=== PATIENT | male | born 1990 | race Caucasian/White ===

== ENCOUNTER 2018-10-02 23:57 | Emergency (ER) | payer BC ==
[2018-10-03 00:01] VITALS: BP 163/103; PULSE 108; RESP 18; TEMP 98.3
--- NOTE | 2018-10-03 00:17 | ED ---
ENT HPI - General Chief complaint: ENT Stated complaint: Sore Throat Time Seen by Provider: 10/03/18 00:16 Source: patient Mode of arrival: ambulatory Limitations: no limitations - History of Present Illness Initial comments: Gurwinder is a pleasant 27-year-old male presents the emergency department today for evaluation of 2 days of sore throat. Patient presented yesterday noticed that his throat was becoming sore and it was worse with swallowing. Today his throat hurt throughout the day which prevented him from eating solid foods. He asked his girlfriend with his throat and noticed his tonsils seemed to be enlarged and red with a lot of purulent discharge and she encouraged him to the ER for evaluation. Patient denies any history of recurrent strep throat. Hasn' t been on antibiotics recently. He denies fevers, chills nausea or vomiting. - Related Data Previous Rx's Medication Instructions Recorded RX: Amoxicillin 500 mg PO BID 10 Days #20 capsule 10/03/18 Allergies Allergy/AdvReac Type Severity Reaction Status Date / Time No Known Allergies Allergy Verified 10/03/18 00:01 Review of Systems ROS Statement: Those systems with pertinent positive or pertinent negative responses have been documented in the HPI. ROS Other: All systems not noted in ROS Statement are negative. Past Medical History Past Medical History: No Reported History History of Any Multi-Drug Resistant Organisms: None Reported Past Surgical History: Orthopedic Surgery Past Psychological History: No Psychological Hx Reported Smoking Status: Current every day smoker Past Alcohol Use History: None Reported Past Drug Use History: None Reported General Exam - General Exam Comments Initial Comments: Physical Exam GENERAL: Patient is well-developed and well-nourished. Patient is nontoxic and well- hydrated and is in no distress. HENT: Normocephalic, Atraumatic. Tonsillar hypertrophy with the MOD and exudates bilaterally Tender Anterior cervical lymphadenopathy EYES: PERRL, EOMI PULMONARY: Unlabored respirations. No audible rales rhonchi or wheezing was noted. CARDIOVASCULAR: There is a regular rate and rhythm without any murmurs gallops or rubs. ABDOMEN: Soft and nontender with normal bowel sounds. SKIN: Skin is clear with no lesions or rashes and otherwise unremarkable. : Deferred NEUROLOGIC: Patient is alert and oriented x3. Moving all extremities spontaneously MUSCULOSKELETAL: Normal extremities with adequate strength and full range of motion. No lower extremity swelling or edema. No calf tenderness. PSYCHIATRIC: Normal psychiatric evaluation. Limitations: no limitations Limitations: no limitations Course Vital Signs 10/02/18 23:59 Temperature 98.3 F Pulse Rate 108 H Respiratory 18 Rate Blood Pressure 163/103 O2 Sat by Pulse 100 Oximetry Medical Decision Making - Medical Decision Making Patient was seen and evaluated history was obtained from patient and girlfriend at bedside next and physical exam concerning for strep pharyngitis, throat was swabbed Will treat with steroids and initiate treatment with amoxicillin Discussed with patient possibility of mononucleosis, advised patient that if he develops a rash within 2 days of starting antibiotics to discontinue antibiotics as he likely has mono. Follow up with ENT for her tonsillar hypertrophy was advised to return parameters were discussed all questions pertaining care were answered patient was discharged home in stable condition. Disposition Clinical Impression: Pharyngitis Disposition: HOME SELF-CARE Instructions: Mononucleosis (ED), Pharyngitis (ED) Prescriptions: RX: Amoxicillin 500 mg PO BID 10 Days #20 capsule Is patient prescribed a controlled substance at d/c from ED?: No Referrals: None,Stated [Primary Care Provider] - 1-2 days [facility] [NON-STAFF] - 1-2 days Patrick Levin DO [Doctor of Osteopathic Medicine] - 1-2 days
[2018-10-03] MEDS ORDERED: DEXAMETHASONE SOD PHOSPHATE 10 MG/ML 1 ML VIAL IM STA (00:25)
[2018-10-03] MEDS ORDERED: AMOXICILLIN 500 MG CAP PO STA (00:25)
== END 2018-10-03 00:45 | disposition home or self-care (01) ==
LOC: EC 23:57
DX: J02.9 Acute pharyngitis, unspecified (principal); J35.1 Hypertrophy of tonsils; F17.200 Nicotine dependence, unspecified, uncomplicated
CPT/HCPCS: 87430; 99283; 96372; J1100

== ENCOUNTER 2018-11-20 07:38 | Emergency (ER) | payer BC, OTHER ==
[2018-11-20 07:43] VITALS: BP 153/93; PULSE 83; RESP 18; TEMP 98
--- NOTE | 2018-11-20 07:52 | ED ---
URI HPI - General Chief Complaint: Upper Respiratory Infection Stated Complaint: Poss bronchitits Time Seen by Provider: 11/20/18 07:46 Source: patient, RN notes reviewed Mode of arrival: ambulatory Limitations: no limitations - History of Present Illness Initial Comments: 27-year-old male presents emergency Department chief complaint of cough congestion for 1 week. Patient states this again worse with no improvement other than when he uses some [id number]-mvicarm cough and cold medications. Patient reports fever last night no fever currently. Patient states he is a daily smoker no history of asthma or COPD. Patient states that his significant other was diagnosed with acute bronchitis. Patient states he hasn't moderate amount of nasal congestion and sinus pressure. - Related Data Home Medications Medication Instructions Recorded Confirmed Ibuprofen [Motrin Ib] 800 mg PO Q6H 11/20/18 11/20/18 Previous Rx's Medication Instructions Recorded Azithromycin [Zithromax Z-pack] 0 mg PO DIRECTED #1 pack 11/20/18 predniSONE 50 mg PO DAILY #5 tab 11/20/18 Allergies Allergy/AdvReac Type Severity Reaction Status Date / Time No Known Allergies Allergy Verified 11/20/18 08:01 Review of Systems ROS Statement: Those systems with pertinent positive or pertinent negative responses have been documented in the HPI. ROS Other: All systems not noted in ROS Statement are negative. Past Medical History Past Medical History: No Reported History History of Any Multi-Drug Resistant Organisms: None Reported Past Surgical History: Orthopedic Surgery Past Psychological History: No Psychological Hx Reported Smoking Status: Current every day smoker Past Alcohol Use History: None Reported Past Drug Use History: None Reported General Exam Limitations: no limitations General appearance: alert, in no apparent distress Head exam: Present: atraumatic, normocephalic, normal inspection Eye exam: Present: normal appearance, PERRL, EOMI. Absent: scleral icterus, conjunctival injection, periorbital swelling ENT exam: Present: mucous membranes moist. Absent: normal exam, normal oropharynx (PND) Neck exam: Present: normal inspection, full ROM. Absent: tenderness, meningismus, lymphadenopathy Respiratory exam: Present: normal lung sounds bilaterally. Absent: respiratory distress, wheezes, rales, rhonchi, stridor Cardiovascular Exam: Present: regular rate, normal rhythm, normal heart sounds. Absent: systolic murmur, diastolic murmur, rubs, gallop, clicks GI/Abdominal exam: Present: soft, normal bowel sounds. Absent: distended, tenderness, guarding, rebound, rigid Course Vital Signs 11/20/18 07:40 Temperature 98 F Pulse Rate 83 Respiratory 18 Rate Blood Pressure 153/93 O2 Sat by Pulse 98 Oximetry Medical Decision Making - Medical Decision Making 27-year-old male presented for cough congestion. Patient's chest x-ray shows no acute abnormality. Patient has acute bronchitis and mild sinusitis will be treated with steroids, antibiotics return parameters were discussed. Smoking sensation greater than 3 minutes were discussed. Disposition Clinical Impression: Bronchitis, Upper respiratory infection Disposition: HOME SELF-CARE Condition: Stable Instructions (If sedation given, give patient instructions): Upper Respiratory Infection (ED) Additional Instructions: Please return to the Emergency Department if symptoms worsen or any other concerns. Prescriptions: Azithromycin [Zithromax Z-pack] 0 mg PO DIRECTED #1 pack predniSONE 50 mg PO DAILY #5 tab Is patient prescribed a controlled substance at d/c from ED?: No Referrals: None,Stated [Primary Care Provider] - 1-2 days Time of Disposition: 08:10
--- NOTE | 2018-11-20 08:01 | XR ---
EXAMINATION TYPE: XR chest 2V DATE OF EXAM: 11/20/2018 COMPARISON: 07/04/1997 HISTORY: Cough/pain TECHNIQUE: Frontal and lateral views of the chest are obtained. FINDINGS: There is no focal air space opacity, pleural effusion, or pneumothorax seen. The cardiac silhouette size is within normal limits. The osseous structures are intact. IMPRESSION: No acute cardiopulmonary process.
== END 2018-11-20 08:15 | disposition home or self-care (01) ==
LOC: EC 07:38
DX: J40 Bronchitis, not specified as acute or chronic (principal); J06.9 Acute upper respiratory infection, unspecified; F17.200 Nicotine dependence, unspecified, uncomplicated; Z79.1 Long term (current) use of non-steroidal anti-inflammatories (NSAID)
CPT/HCPCS: 71046; 99283

== ENCOUNTER 2021-04-06 18:33 | Emergency (ER) | payer OTHER ==
[2021-04-06 19:02] VITALS: BP 94/60; PULSE 74; RESP 18; TEMP 98.2
[2021-04-06] MEDS ORDERED: methylPREDNISolone SOD SUCCI 125 MG/2 ML VIAL IM ONE (20:17)
[2021-04-06] MEDS ORDERED: MORPHINE SULFATE 4 MG/ML SYRINGE IM STA (20:17)
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
--- NOTE | 2021-04-06 21:08 | XR ---
EXAMINATION TYPE: XR lumbar spine 2 or 3V DATE OF EXAM: 04/06/2021 COMPARISON: NONE HISTORY: Back pain TECHNIQUE: 3 views FINDINGS: Lumbar vertebra have fairly normal spacing and alignment. Posterior elements are intact. Th ere is no compression fracture. Sacroiliac joints are intact. IMPRESSION: Negative lumbar spine exam.
== END 2021-04-06 21:36 | disposition home or self-care (01) ==
LOC: EC 18:33
DX: M54.30 Sciatica, unspecified side (principal); F17.200 Nicotine dependence, unspecified, uncomplicated
CPT/HCPCS: 72100; 99283; 96372 ×2; J2270; J2930

== ENCOUNTER 2021-08-20 12:31 | Emergency (ER) | payer OTHER ==
[2021-08-20] MEDS ORDERED: methylPREDNISolone SOD SUCCI 125 MG/2 ML VIAL IM ONE (13:32)
[2021-08-20] MEDS ORDERED: Acetaminophen-Codeine 300-30mg TAB PO STA (13:32)
--- NOTE | 2021-08-20 14:26 | XR ---
EXAMINATION TYPE: XR lumbar spine 2 or 3V DATE OF EXAM: 08/20/2021 CLINICAL HISTORY: pain TECHNIQUE: Three views of the lumbar spine are submitted. COMPARISON: None. FINDINGS: There are 5 lumbar type vertebral bodies identified. The lumbar spine shows satisfactory alignment w ithout evidence of acute fracture or dislocation. Vertebral body heights are within normal limits. Disc spaces are within normal limits. The overlying soft tissue appears unremarkable. IMPRESSION: No acute fracture or dislocation is seen in the lumbar spine. ICD 10 NO FRACTURE, INITIAL EVALUATION
--- NOTE | 2021-08-20 15:10 | ED ---
General Adult HPI - General Chief complaint: Neck Pain/Injury Stated complaint: Back pain Time Seen by Provider: 08/20/21 13:08 Source: patient, RN notes reviewed Mode of arrival: ambulatory Limitations: no limitations - History of Present Illness Initial comments: Patient is a 30-year-old male that complaining of right lower back pain with radiation down the right leg. Patient denied any injury trauma. Patient was otherwise well-appearing. He notes that he has some numbness and tingling on his right leg but no saddle anesthesia or bladder or bowel incontinence/retention. Patient was otherwise well-appearing. He denied chest pain first breath headache nausea vomiting diarrhea constipation fever fatigue chills. - Related Data Home Medications Medication Instructions Recorded Confirmed Ibuprofen [Motrin Ib] 800 mg PO Q6H 11/20/18 11/20/18 Previous Rx's Medication Instructions Recorded Azithromycin [Zithromax Z-pack (6 0 mg PO DIRECTED #1 pack 11/20/18 tabs)] predniSONE 50 mg PO DAILY #5 tab 11/20/18 Ibuprofen [Motrin] 800 mg PO Q6HR #30 tab 04/06/21 predniSONE 50 mg PO DAILY #5 tab 08/20/21 Allergies Allergy/AdvReac Type Severity Reaction Status Date / Time No Known Allergies Allergy Verified 08/20/21 12:39 Review of Systems ROS Statement: Those systems with pertinent positive or pertinent negative responses have been documented in the HPI. ROS Other: All systems not noted in ROS Statement are negative. Past Medical History Past Medical History: No Reported History History of Any Multi-Drug Resistant Organisms: None Reported Past Surgical History: Orthopedic Surgery Past Psychological History: No Psychological Hx Reported Smoking Status: Current every day smoker Past Alcohol Use History: None Reported Past Drug Use History: Marijuana General Exam Limitations: no limitations General appearance: alert, in no apparent distress Head exam: Present: atraumatic, normocephalic, normal inspection Eye exam: Present: normal appearance, PERRL, EOMI. Absent: scleral icterus, conjunctival injection, periorbital swelling ENT exam: Present: normal exam, mucous membranes moist Neck exam: Present: normal inspection Respiratory exam: Present: normal lung sounds bilaterally. Absent: respiratory distress, wheezes, rales, rhonchi, stridor Cardiovascular Exam: Present: regular rate, normal rhythm, normal heart sounds. Absent: systolic murmur, diastolic murmur, rubs, gallop, clicks GI/Abdominal exam: Present: soft, normal bowel sounds. Absent: distended, tenderness, guarding, rebound, rigid Extremities exam: Present: normal inspection, full ROM, normal capillary refill. Absent: tenderness, pedal edema, joint swelling, calf tenderness Back exam: Present: normal inspection, tenderness (Right SI) Neurological exam: Present: alert, oriented X3 Psychiatric exam: Present: normal affect, normal mood Skin exam: Present: warm, dry, intact, normal color. Absent: rash Course Vital Signs 08/20/21 12:37 Temperature 98 F Pulse Rate 96 Respiratory 20 Rate Blood Pressure 172/100 O2 Sat by Pulse 99 Oximetry Medical Decision Making - Medical Decision Making 30-year-old male with right lower back pain radiation on the right leg. 125 mg of Solu-Medrol, Tylenol 3, x-ray lumbar spine ordered. X-ray negative for any acute fractures or dislocations. Patient most likely experiencing sciatica with radicular symptoms. There are will be sent to pharmacy. Case discussed with Dr. Leach, patient discharge home. Disposition Clinical Impression: Sciatica, Lumbar radiculopathy Disposition: HOME SELF-CARE Condition: Stable Instructions (If sedation given, give patient instructions): Sciatica (ED), Lumbar Radiculopathy (ED) Additional Instructions: Please return to the Emergency Department if symptoms worsen or any other concerns. Follow-up primary care 1-2 days. Take as prescribed. Is patient prescribed a controlled substance at d/c from ED?: No Referrals: None,Stated [Primary Care Provider] - 1-2 days Time of Disposition: 15:10
[2021-08-20 15:34] VITALS: BP 154/76; PULSE 80; RESP 17; TEMP 97.9
== END 2021-08-20 15:34 | disposition home or self-care (01) ==
LOC: EC 12:31
DX: M54.16 Radiculopathy, lumbar region (principal); M54.41 Lumbago with sciatica, right side; F17.200 Nicotine dependence, unspecified, uncomplicated; F12.90 Cannabis use, unspecified, uncomplicated
CPT/HCPCS: 99283; 96372; 72100; J2930

== ENCOUNTER → 2022-01-11 | Outpatient (CLI) | payer OTHER ==
--- NOTE | 2022-01-11 21:52 | MR ---
EXAMINATION TYPE: MR lumbar spine wo con DATE OF EXAM: 01/11/2022 COMPARISON: Lumbar spine x-ray August 20, 2021. HISTORY: Low back pain for 12 years, pain radiates into right buttock TECHNIQUE: Multiplanar, multisequence imaging of the lumbar spine is performed without IV contrast. FINDINGS: Sagittal images of the lumbar spine show vertebral body heights and alignment to appear sat isfactory. There is disc desiccation and T11-T12, L3-L4, and L4-L5 levels. Mild disc space narrowing at L3-L4 and L4-L5 levels The conus medullaris is normal in position and signal ending at T12-L1 dis c space level. The bone marrow signal intensity is within normal limits. Axial images show T12-L1 through L2-L3 level to appear within normal limits. Axial images at L3-L4 level show mild/moderate broad-based disc protrusion effacing the anterior thec al sac. Patent bilateral neural foramina are seen. Axial images at L4-L5 level show large focal right paracentral disc protrusion effacing the anterolat eral thecal sac and lateral recess along with likely central right L5 nerve on axial image 8 measurin g 6 mm AP diameter by 14 mm transversely. Mild facet arthropathy bilaterally. Mild bilateral anterior inferior neural foraminal narrowing is noted. Axial images at L5-S1 level appear within normal limits. Paraspinal muscle bulk is preserved. IMPRESSION: Multilevel degenerative changes with largest disc herniation noted at L4-L5 level likely effacing central right L5 nerve accounting for patient's symptoms.
== END | disposition home or self-care (01) ==
LOC: RADMRIMAIN 19:46
PROVIDERS: ATTEND Orthopaedic Surgery
DX: M47.816 Spondylosis without myelopathy or radiculopathy, lumbar region (principal); M51.26 Other intervertebral disc displacement, lumbar region
CPT/HCPCS: 72148

== ENCOUNTER → 2022-02-03 | Outpatient (CLI) | payer OTHER ==
--- NOTE | 2022-02-03 08:05 | P.CON ---
Consult Note - . Consult date: 02/03/22 Assessment/Plan:: HISTORY OF PRESENT ILLNESS: 31 yr old male as a referral from Dr. Sauer presents today with chronic and severe lower back/sacral pain x 12 years secondary to DDD, L5 disc herniation, R L5 encroachment and facet arthropathy for evaluation. Patient states his pain is 5 out of 10 in intensity, constant, sore in character in the lower right aspects of his lumbar spine with radiation of pain to the back of the right pelvis. Pain is provoked with bending, twisting and lifting. Pain is alleviated with medications, +cannabis use, ice, heat, physical therapy for 5-6 weeks which ended in January 2022, daily home stretching regimen, repositioning and rest. Past Medical History: No Reported History History of Any Multi-Drug Resistant Organisms: None Reported Past Surgical History: Orthopedic Surgery Social History: Daily tobacco smoker, +Cannabis use, No ETOH abuse. Family History: Non contributory All: NKDA Meds: Ibuprofen and Flexeril (Dr Sauer) REVIEW OF ORGAN SYSTEMS: CONSTITUTIONAL: No fevers or chills. No recent weight loss. HEENT: No visual acuity loss, eye pain, difficulties with hearing. No nosebleeds. No difficulty swallowing. RESPIRATORY: Denies any troubles with breathing or dyspnea on exertion. CARDIOVASCULAR: Denies any chest pain, palpitations, or recent heart attacks. GASTROINTESTINAL: Denies fatty food intolerance. Has change in bowel habits and gas bloat. GENITOURINARY: Denies any blood in urine. Has increased urinary frequency. NEUROLOGICAL: + numbness and tingling along the distal extremities. No seizure disorders or headaches. MUSCULOSKELETAL: + back pain SKIN: No skin cancer. No rash. PSYCHIATRIC: Denies current depression or suicidal thoughts. ENDOCRINE: Denies current thyroid disorders. Denies any blood sugar glucose intolerance. HEME/LYMPHATIC: Denies any lumps and bumps around the neck. History of deep venous thrombosis. ALLERGY/IMMUNOLOGY: No immunoglobulin therapy. No immune deficiencies. BREAST: Denies current breast lumps, pain or nipple discharge. Physical Examinations : Constitutional : Cooperative , not in acute distress . HEENT: Neck supple. No Lymphadenopathy. Normal thyroid size . Eyes no ptosis , no icterus, no photophobia . Hearing intact. Normal oropharynx. No Thrush. Respiratory : Chest clear to auscultations bilaterally. No wheezing. No rhonchi. Cardiovascular : Regular rate and rhythm , S1 / S2. No S3 . No S4. Gastrointestinal : Abdomen soft. No tenderness. Bowel sounds x 4. No organomegaly . Genitourinary : Deferred. Neurologic : Cranial nerve II to XII intact. No focal neurological deficits. Psychiatric : alert & oriented x 3. Matching mood & appropriate affect. Judgment & insight intact. Lymphatic No Lymphadenopathy. Musculoskeletal : Cervical Spine Motor strength in the deltoid and biceps: Normal right side. Normal Left side Motor strength biceps and the wrist extensors: Normal right side . Normal left side Motor strength in the triceps muscle: Normal right side. Normal left side Deep tendon reflexes: Normal at the biceps. Normal at Brachioradialis. Normal at triceps Cervical facet loading test: positive bilaterally Spurling test: positive bilaterally Neck distraction test: positive bilaterally Harinder sign: positive bilaterally Lumbar spine Motor strength lower extremities ,thigh and legs 5/5 Right side , 5/5 Left side Deep tendon reflexes : Normal Knee Jerk. Normal Ankle Jerk Vertebral body tenderness over Lumbar facet Loading Test: positive Right / positive Left Range of motion of the lumbar spine Flexion 30 degrees, extension 10 degrees Straight Leg Raise test: Left/ Right po sitive at degree [place] test: positive right / positive left. Severe tenderness over the Sacroiliac joint on the Right / Left sides [place] test: positive on the right Seated flexion test: positive on the right Imaging: MRI without contrast of the lumbar spine from 01/11/22 reviewed. Assessment/ Plan : Right sacroiliitis, Lumbar DDD, Lumbar DH Recommendation of right SI joint injection. May need a series of injections, every 3 months, for optimal pain relief. Risks, benefits of procedure discussed and patient verbalized understanding. Denies aspirin or anti- coagulant use or medical history of diabetes. All questions answered. I have spent greater than 50 minutes on patient care today. Dr Vivar was available by phone for the evaluation of this patient. The time was used to review the medical records including relevant urine studies and Prescription history (MAPs), review of the available imaging, evaluation and examination of the patient, coordination of care with the medical staff and if applicable referring physicians, as well as creation of the medical record PQRS Measure Charge Sheet PQRS Narrative: Smoking Status Current every day smoker Home Medications: Ambulatory Orders predniSONE 50 mg PO DAILY #5 tab 08/20/21
[2022-02-03 08:30] VITALS: BP 183/139; PULSE 73; RESP 18; TEMP 98.1
== END ==
LOC: PNWHC3 07:26
PROVIDERS: ATTEND Specialist
DX: M46.1 Sacroiliitis, not elsewhere classified (principal); M51.36 Other intervertebral disc degeneration, lumbar region; M51.26 Other intervertebral disc displacement, lumbar region; F17.200 Nicotine dependence, unspecified, uncomplicated
CPT/HCPCS: 99211

== ENCOUNTER 2022-02-24 11:03 | Inpatient (IN) | payer OTHER ==
[2022-02-24] MEDS ORDERED: MORPHINE SULFATE 4 MG/ML SYRINGE IM STA (11:15)
[2022-02-24] MEDS ORDERED: NALOXONE 0.4 MG/ML 1 ML VIAL IV PRN (11:37)
[2022-02-24] MEDS ORDERED: ACETAMINOPHEN TAB 325 MG TAB PO PRN (11:37)
[2022-02-24] MEDS ORDERED: IBUPROFEN 400 MG TAB PO PRN (11:37)
--- NOTE | 2022-02-24 11:41 | ED ---
Back Pain HPI - General Chief Complaint: Back Pain/Injury Stated Complaint: back pain Time Seen by Provider: 02/24/22 11:10 Source: patient, RN notes reviewed Limitations: no limitations - History of Present Illness Initial Comments: Patient is a pleasant 31-year-old male presents to the emergency room at the direction of Dr. Raygoza sent with complaints of increase in lower back pain and worsening radiculopathy. He has been following with Dr. Raygoza as an outpatient regressive back pain that has been ongoing for several months unfortunately worsened recently the pain has worsened with an increase in numbness tingling and left leg weakness. He denies any difficulty urinating or having bowel movements or any erectile dysfunction. - Related Data Previous Rx's Medication Instructions Recorded predniSONE 50 mg PO DAILY #5 tab 08/20/21 Allergies Allergy/AdvReac Type Severity Reaction Status Date / Time No Known Allergies Allergy Verified 02/24/22 11:07 Review of Systems ROS Statement: Those systems with pertinent positive or pertinent negative responses have been documented in the HPI. ROS Other: All systems not noted in ROS Statement are negative. Past Medical History Past Medical History: No Reported History History of Any Multi-Drug Resistant Organisms: None Reported Past Surgical History: No Surgical Hx Reported, Orthopedic Surgery Past Anesthesia/Blood Transfusion Reactions: No Reported Reaction Past Psychological History: No Psychological Hx Reported Smoking Status: Vaper Past Alcohol Use History: None Reported Past Drug Use History: Marijuana General Exam Limitations: no limitations General appearance: alert, in no apparent distress Head exam: Present: atraumatic, normocephalic, normal inspection Eye exam: Present: normal appearance, PERRL, EOMI. Absent: scleral icterus, conjunctival injection, periorbital swelling ENT exam: Present: normal exam, mucous membranes moist Neck exam: Present: normal inspection. Absent: tenderness, meningismus, lymphadenopathy Respiratory exam: Present: normal lung sounds bilaterally. Absent: respiratory distress, wheezes, rales, rhonchi, stridor Cardiovascular Exam: Present: regular rate, normal rhythm, normal heart sounds. Absent: systolic murmur, diastolic murmur, rubs, gallop, clicks GI/Abdominal exam: Present: soft, normal bowel sounds. Absent: distended, tenderness, guarding, rebound, rigid Extremities exam: Absent: tenderness, pedal edema, joint swelling Left Neurovascular tendon exam: Present: no vascular compromise Gait: observed and limited by pain Back exam: Present: tenderness, muscle spasm Neurological exam: Present: alert, oriented X3, CN II-XII intact, other (Bilateral lower extremities mild weakness L>R) Psychiatric exam: Present: normal affect, normal mood Skin exam: Present: warm, dry, intact, normal color. Absent: rash Course Vital Signs 02/24/22 11:05 Temperature 98.4 F Pulse Rate 103 H Respiratory 20 Rate Blood Pressure 159/119 O2 Sat by Pulse 100 Oximetry Medical Decision Making - Medical Decision Making Dr. Sauer called regarding the patient. Patient has had an outpatient MRI of the lumbar spine showing an L4-L5 herniation with increase in lower extremity symptoms. Dr. Sauer plans for surgery tomorrow and would like patient admitted to his service for pain management overnight with sound physicians to follow for medical management. Dr. Lyndsay Ambrocio notified regarding medical management. Patient's pain much improved with morphine without side effects. - Lab Data Result diagrams: 02/24/22 11:35 02/24/22 11:35 Lab Results 02/24/22 02/24/22 02/24/22 Range/Units 11:35 11:35 11:36 WBC 10.2 (3.8-10.6) k/uL RBC 5.71 (4.30-5.90) m/uL Hgb 17.6 H (13.0-17.5) gm/dL Hct 51.9 (39.0-53.0) % MCV 91.0 (80.0-100.0) fL MCH 30.8 (25.0-35.0) pg MCHC 33.8 (31.0-37.0) g/dL RDW 12.9 (11.5-15.5) % Plt Count 305 (150-450) k/uL MPV 7.0 Neutrophils % 70 % Lymphocytes % 21 % Monocytes % 4 % Eosinophils % 2 % Basophils % 1 % Neutrophils # 7.1 (1.3-7.7) k/uL Lymphocytes # 2.1 (1.0-4.8) k/uL Monocytes # 0.4 (0-1.0) k/uL Eosinophils # 0.2 (0-0.7) k/uL Basophils # 0.1 (0-0.2) k/uL PT 10.6 (9.0-12.0) sec INR 1.0 (<1.2) APTT 25.2 (22.0-30.0) sec Sodium 141 (137-145) mmol/L Potassium 4.0 (3.5-5.1) mmol/L Chloride 104 (98-107) mmol/L Carbon Dioxide 28 (22-30) mmol/L Anion Gap 9 mmol/L BUN 12 (9-20) mg/dL Creatinine 0.98 (0.66-1.25) mg/dL Est GFR (CKD-EPI)AfAm >90 (>60 ml/min/1.73 sqM) Est GFR (CKD-EPI)NonAf >90 (>60 ml/min/1.73 sqM) Glucose 95 (74-99) mg/dL Calcium 9.4 (8.4-10.2) mg/dL Disposition Clinical Impression: Lumbar disc herniation with myelopathy Disposition: ADMITTED IP TO THIS [facility] Instructions (If sedation given, give patient instructions): Acute Low Back Pain (ED) Is patient prescribed a controlled substance at d/c from ED?: No Referrals: None,Stated [Primary Care Provider] - 1-2 days Time of Disposition: 13:16
[2022-02-24 12:08] LABS: Basophils # (A) 0.1 k/uL (0-0.2); Basophils % (A) 1 %; Eosinophils # (A) 0.2 k/uL (0-0.7); Eosinophils % (A) 2 %; HCT 51.9 % (39.0-53.0); HGB 17.6 gm/dL (13.0-17.5); Lymphocytes # (A) 2.1 k/uL (1.0-4.8); Lymphocytes % (A) 21 %; MCH 30.8 pg (25.0-35.0); MCHC 33.8 g/dL (31.0-37.0); Monocytes # (A) 0.4 k/uL (0-1.0); Monocytes % (A) 4 %; Neutrophils # (A) 7.1 k/uL (1.3-7.7); Neutrophils % (A) 70 %; Platelet Count 305 k/uL (150-450); RBC 5.71 m/uL (4.30-5.90); RDW 12.9 % (11.5-15.5); WBC 10.2 k/uL (3.8-10.6)
[2022-02-24 12:14] LABS: Partial Thromboplastin Time 25.2 sec (22.0-30.0); Prothrombin Time 10.6 sec (9.0-12.0)
[2022-02-24 12:22] LABS: African American GFR (CKD) >90 (>60 ml/min/1.73 sqM); Anion Gap 9 mmol/L; Blood Urea Nitrogen 12 mg/dL (9-20); Calcium 9.4 mg/dL (8.4-10.2); Carbon Dioxide 28 mmol/L (22-30); Chloride 104 mmol/L (98-107); Glucose 95 mg/dL (74-99); Non-African American GFR(CKD) >90 (>60 ml/min/1.73 sqM); Sodium 141 mmol/L (137-145)
[2022-02-24] MEDS ORDERED: CYCLOBENZAPRINE 10 MG TAB PO PRN (13:33)
--- NOTE | 2022-02-24 14:27 | P.HPOR ---
History of Present Illness H&P Date: 02/24/22 Chief Complaint: Low back, Leg pain 31 yo male presented to ED with c/o of severe low back and leg pain. Pt is known to me and was seen last week in the office with MRI results showing a massive L4-5 HNP. He has had progressive radicular symptoms and is having weakness in his legs to the point where it is becoming difficult to walk due to the pain and sx. We had planned on surgical intervention. His pain became acutely worse however and so he called office and we advised him to the ED for eval and treatment with likely admission for surgical intervention due to the progressive nature of his sx and severity of his disc herniation. He was evaluated. Continues to have severe LE radiculopathy, severe tensioning signs and pain with motion. Difficulty with ambulation due to the pain and weakness in his legs. He has tried OTC meds, RX medications as well as PT and HEP w/o relief. Injections are unlikely to help this massive HNP and we discussed at length surgical intervention in the office. He denies any bowel or bladder issues. States no retention a this time. He states no genital numbness/tingling at this time but does get occasional pain into his groin and testes which seems to radiate from his back. Denies f/c/sob/cp. Trauma or injury No Work-Related No Pain description sharp. Location posterior Activity Modification yes , unable to stand or ambulate for extended periods of time. Hand Dominance right DOI: None. DOS: None. TREATMENTS COMPLETED: 6 weeks of PT completed? Date of last completed: 01/2022 Yes How many visits: 6-8 Did it help? No, significantly exacerbated his symptoms. Physician directed home exercise completed? yes , daily without any improvements. Can no longer complete as it severely impacts his ability to complete daily tasks. Medications yes, Medrol Dosepak, Motrin 800mg, Flexeril 10mg all without relief of his symptoms. Alternative interventions Chiropractic: Yes, without any improvements. Massage therapy: No Brace: No Injections NO, we previously ordered but was denied by his insurance company. RFA: No Review of Systems 14 points review of systems completed and as stated in HPI, all other systems reviewed are negative. Constitutional: Reports as per HPI Past Medical History Past Medical History: No Reported History History of Any Multi-Drug Resistant Organisms: None Reported Past Surgical History: No Surgical Hx Reported, Orthopedic Surgery Past Anesthesia/Blood Transfusion Reactions: No Reported Reaction Past Psychological History: No Psychological Hx Reported Smoking Status: Vaper Past Alcohol Use History: None Reported Past Drug Use History: Marijuana Medications and Allergies Home Medications Medication Instructions Recorded Confirmed Type Cyclobenzaprine [Flexeril] 10 mg PO BID 02/24/22 02/24/22 History Gabapentin [Neurontin] 300 mg PO TID 02/24/22 02/24/22 History HYDROcodone/APAP 10-325MG [[place] 1 tab PO Q4HR PRN 02/24/22 02/24/22 History 10-325] Ibuprofen [Motrin] 800 mg PO Q6H PRN 02/24/22 02/24/22 History Allergies Allergy/AdvReac Type Severity Reaction Status Date / Time No Known Allergies Allergy Verified 02/24/22 13:25 Physical Examination Osteopathic Statement: *. No significant issues noted on an osteopathic st ructural exam other than those noted in the History and Physical/Consult. PHYSICAL EXAMINATION: General: Awake, alert, appropriate for age, in no acute distress. HEENT: No unusual neck masses around region of lateral neck triangle, thyroid, supraclavicular groove Extremities: Skin warm and dry without acute lesions, coloration, temperature, skin intact, no tenderness or erythema Integument: Hairy patches: Absent Dorsal skin dimples: Absent Cafe au lait spots: Absent Surgical incisions: No Palpation: Please see Pain drawing on Intake sheet for further detail. Midline spinal tenderness: Yes E6 Paralumbar tenderness: Yes E6 Parathoracic tenderness: No E6 Buttocks tenderness: No E6 Special findings: TTP over the right SI joint POSTURAL and MUSCULO-SKELETAL EVALUATION: Coronal Balance: NEUTRAL Recumbent testing: Patient is able to lay flat on back Sagittal Balance: NEUTRAL Shoulder Profile: LEVEL Pelvic Girdle: LEVEL Neck ROM: UNRESTRICTED Lumbar ROM: RESTRICTED WITH PAIN Shoulder ROM: Symmetrical Hip ROM: Symmetrical Knee ROM: Symmetrical Hands: Normal appearance, symmetrical Feet: Normal appearance, Symmetrical VASCULAR STATUS : LEFT RIGHT Wrist Pulses INTACT INTACT Pedal Pulses (Dors. pedis & post.tibialis) INTACT INTACT Color NORMAL NORMAL Edema Absent Absent NEUROLOGIC EXAMINATION: Mental Status:Awake and alert, fully oriented, with normal attention, concentration and memory, and fluent, appropriate speech. Cranial Nerves: I: Olfactory not tested. II: Visual acuity normal, no visual field deficit noted with confrontation. III,IV: Normal pupillary reflexes & intact extraocular movements without nystagmus. V,: Intact symmetrical facial sensation. VII: Intact symmetrical facial motor movement VIII: Hearing intact. IX,X: Intact gag, swallow, & normal voice. XI: Sternocleidomastoid, trapezius function intact. XII: Tongue midline with normal movements. L'hermitte's Sign: Negative / absent Spurling'Sign: Absent bilaterally. Cubital percussion test: Absent bilaterally. Naqvi-Tinel sign - Carpal region: Absent bilaterally. Straight Leg Raising: Present bilaterally. Crossed straight leg raise: negative O8 MOTOR EXAM (0-5/5, N/T) STRENGTH RIGHT LEFT Shoulder Abd (not part of the KAYLIN score) 5 5 Elbow Flexors 5 5 Elbow Extensor 5 5 Wrist Dorsiflexors 5 5 Finger Abductor 5 5 Director Of Sales 5 5 Hip Flexor (Not part of KAYLIN Motor score) 4 4- Knee Flexor 4 4- Knee Extensor 4 4- Ankle dorsiflexor 4 4- Ankle plantarflexion 4 4- Extensor hallucis 4 4- REFLEXES(0-4/2, NT) RIGHT LEFT Upper Extremities 2 2 Lower Extremities 2 2 Pathological Reflexes RIGHT LEFT Naqvi's Absent Absent Clonus Absent Absent Babinski Absent Absent # Indicates mechanical impairment Muscle appearance: Symmetrical, without signs of atrophy or dystrophy. Sensory system (0-4, N/T) Test type RU JARETH RL LL Joint-Position 2 2 2 2 Vibration 2 2 2 2 Pain & LT sense 2 2 2 2 Dermatomal Deficit: None None L4-S1 L4-S1 Gait and Functional Evaluation: Ambulatory aids: Independent Romberg's test: Intact bilaterally Toe heel walk / heel-toe walk intact while maintaining satisfactory balance? no Squatting/straightening w/o assistance to a min of 60 degree knee flexion? no Single leg stance: not intact bilaterally Trendelenburg sign negative bilaterally Hand and finger dexterity intact bilaterally? yes Disdiadochokinesis examination negative bilaterally? yes Results RADIOGRAPHIC STUDIES: XRay taken on 11/02/21 of Lumbar Spine: Lumbar spine is reviewed. There are no fractures or dislocation noted. No listhesis. Some minor ddd and facet arthropathy noted. AP pelvis shows no fracture or dislocation MRI without contrast from 01/15/2022 of the lumbar spine: Extremely large HNP at L4-5 causing severe stenosis at L4-5 with b/l foraminal stenosis as well due to thecal sac encrochment. Alignment maintained. No fracures. No lesions. - Labs Labs: Abnormal Lab Results - Last 24 Hours (Table) 02/24/22 Range/Units 11:35 Hgb 17.6 H (13.0-17.5) gm/dL H & H 02/24/22 Range/Units 11:35 Hgb 17.6 H (13.0-17.5) gm/dL Hct 51.9 (39.0-53.0) % Coagulation 02/24/22 Range/Units 11:36 INR 1.0 (<1.2) Result Diagrams: 02/24/22 11:35 02/24/22 11:35 Assessment and Plan Assessment: 1. Massive L4-5 HNP with severe LBP and radiculopathy 2. LE weakness 3. Debility secondary to #1 Plan: -Appreciate consulting services and team management -Admit to hospital for pain control and work up for surgical intervention -Start Gabapentin, Flexeril, pain control and home meds -Hold anticoag -Reg diet. NPO @ [place] -Spine Surgery Risk Review Mr. Motta is presenting for evaluation of sharp low back pain. It was my pleasure to have seen and examined Mr. Motta. In our visit today we have had a chance to go over subjective complaints, physical examination findings and treatments including the natural course history without intervention and various interventional options. The patients imaging demonstrates Massive L4-5 HNP with severe stenosis centrally and b/l foraminally with disc height loss due to this as well. No fracture. No lesions. On physical exam, Mr. Motta demonstrates bilateral lower extremity radiculopathy with weakness and severely resictricted ROM with regards to the lumbar spine. Tensioning signs with positive SLR on L and pos contralateral SLR on Rt. Patient unable to complete most testing due to the severity of his symptoms. I have explained to the patient that as their condition progresses it will cause further neurological deficits and eventual paralysis. Based on the patients imaging, physical exam, and the rapid progression and disabling nature of their symptoms, at this time I recommend surgery in the form or a: L4-L5 Microdiscectomy. I discussed the risk and benefits of this procedure at length with Mr. Motta. The patient agreed to considered pursuing the procedure abovementioned. Prior to surgery, she should follow up with her PCP (Cardio, ID, IM etc) for clearance. Questions were invited and answered, and the patient wishes to proceed as outlined below. Currently, I am recommendin. L4-L5 Microdiscectomy 2.Follow up with PCP for surgical clearance 3.Review of surgical risks and benefits as well as an educational packet on the proposed surgical procedure. Risks: All surgical procedures come with inherent risks, including those related to positioning, anesthesia, intraoperative findings, and postoperative complications. It is important to understand that surgery does not come with an y guarantee of a successful outcome as complications and adverse events are always possible. The patient was given a handout in office today discussing the surgical procedure and risks associated with the intervention, both of which were discussed with the patient. These risks include but are not limited to the following: * Experiencing same, different or even worse symptoms in back, neck, arms, or legs compared to before surgery. Requiring further surgery or other forms of treatment presently or at some time in the future at same or other levels of the intended spine surgery. On an extreme but fortunately relatively rare basis severe complication such as blindness, stroke, heart attack, temporary and/or permanent nerve injury, paralysis, coma, or may occur, sometimes without known explanation. Surgical complications may include but are not limited to risk of infection, fluid accumulation in the surgical dissection site, including a seroma or hematoma, that requires additional surgery, wound drainage, bleeding, new numbness or weakness, vision changes/loss, spinal fluid leakage, non-healing and/or infected incision, headaches, difficulty or inability to swallow, hoarseness, hemopneumothorax, pneumothorax, impotence, retrograde ejaculation, vaginal dryness; injury to nerves, spinal cord, blood vessels, lymphatics or other vital organs (i.e., bowel injury, injury to the great vessels); heterotopic bone formation; complications related to the hardware such as screws, rods, cages including misplaced hardware, device failure, instrumentation at the wrong spine level, hardware fracture/breakage, or hardware loosening; vertebral failure of the spinal column above or below the newly placed hardware; retained surgical instrumentations or devices and the need for further surgery. * Medical risks of the planned spine surgery include but are not limited to generalized Infections to the whole body or local areas outside of the surgical site (sepsis), heart attack, bleeding, anaphylaxis, meningitis, seizure, epilepsy, hearing loss, burn zapata, laceration of the head or other areas of the body, bruising, hypersensitivity of the skin, bladder over distension; allergic reaction; shoulder injury related to positioning; fat, blood and air clots to other areas of the body like heart, lungs, brain; failure of internal organs such as lungs, kidneys, liver and excessive bleeding. If blood transfusions are necessary, note that transfusions may cause intolerance reactions such as anaphylaxis or other complex reactions. Despite best efforts, the results of spine surgery might not heal in terms of bone, soft tissues such as skin, fascia, ligaments, and joints. Additionally, in order to achieve best possible results, spine surgery may be carried out beyond the initially planned levels and involve decompression, fusion including insertion of hardware at levels other than the original intended area of surgical interest change some portions of the procedure in order to ensure the best possible outcomes. With spine surgery and spinal fusion, there are different off label uses of instrumentation (devices, implants and hardware) as well as biological substances (bone morphogenic proteins, demineralized bone matrix) as well as using extra bone from allograft sources (i.e. cadaver bone) or autograft (iliac crest bone, ribs, or the spine itself). The patient has been given information about these practices and their inherent risks and benefits. [facility] is an educational center that serves as a training facility for neurosurgical and orthopedic LEAD SOFTWARE DEVELOPMENT ENGINEER and Nursing students. Physician assistants are medically trained surgical providers who function in the outpatient, inpatient, and operating room setting under the direct supervision of the attending surgeon. [facility] has multiple operating rooms with single and overlapping rooms running daily. They currently function under the required guidelines as produced by the Senate Finance Committee with regards to the overlapping rooms and will continue to comply with changes to this policy as they occur. The requirements include and are complied with as follows: (1) the critical portions of the overlapping rooms will not occur at the same time, (2) the attending physician will be physically present during the critical portions of the procedure and immediately available during the entire case, and (3) a back-up attending is designated should the primary attending not be immediately available. The patient has had a chance to review all the listed information, has been given print outs detailing this information, and has had all his/her questions answered to their satisfaction. It was my pleasure to have seen and examined Mr. Motta. In our visit today we have had a chance to go over my understanding of our patient's current condition, the natural course history without intervention and various interventional options. Questions were invited and answered, and the patient wishes to proceed as outlined above. I have seen and examined the patient for 25 minutes and we have spent more than 50% of the time in repeat and detailed counseling about the patient's condition, its natural course history with out and as much as can be predicted with surgery and re-review of various surgical treatment options. In conclusion, Mr. Motta requested we proceed with the above suggested surgery and are willing to accept risks and limitations of the suggested surgery as nature of the disease process and our best attempts at treatment for the condition. Thank you again for allowing us to be part of your patient's care. Please don't hesitate to contact me if you have any further questions. Signed and authenticated by: [facility] [place] [address] [id number]
[2022-02-24] MEDS ORDERED: bisacodyL 5 MG TABLET.DR PO PRN (15:10)
[2022-02-24] MEDS ORDERED: ONDANSETRON 4 MG/2 ML VIAL IVP PRN (15:10)
--- NOTE | 2022-02-24 15:16 | P.CONS ---
History of Present Illness - Reason for Consult Consult date: 02/24/22 pre-op evaluation Requesting physician: Hima Sauer - Chief Complaint back pain - History of Present Illness Patient is a 31-year-old male with history of chronic back pain, I want use, and recent tobacco use who presented to the ER at the direction of Dr. Sauer for numbness and tingling with worsening back pain. In the ER he underwent an extensive evaluation. On arrival his heart rate was 103 and blood pressure was 159/119. Laboratory analysis was unremarkable. We were asked to consult on the patient for preoperative risk stratification. Patient seen and examined at bedside in the emergency department. He reports that he has been struggling with back pain for the last several months and following up with Dr. Oneill He underwent MRI at the end of December which showed a significant disc fall L4 5. His pain has been worsening over the last week. Over the last 2 days he has noted some numbness down his left thigh which abruptly stops at his left knee. He has also noted some numbness in his genital area. He reports his bowel movements have been normal. He has been straining to start urinating sometimes area but not consistently. It gets worse with walking and placing an axial load on the spine. It is better with bending down to reach for things or squatting. He quit smoking 2 weeks ago. He is not on any chronic medications. Pertinent positives and negatives as discussed in HPI, a complete review of systems was performed and all other systems are negative. Vital signs reviewed General: non toxic, no distress, appears at stated age Derm: warm, dry Head: atraumatic, normocephalic, symmetric Eyes: EOMI, no lid lag, anicteric sclera, pupils equal round reactive to light ENT: Nose and ears atraumatic, no thrush, no pharyngeal erythema Neck: No thyromegaly, no cervical lymphadenopathy, trachea midline, supple Mouth: no lip lesion, mucus membranes moist Cardiovascular: S1S2 reg, no murmur, positive posterior tibial pulse bilateral, no edema, capillary refill less than 2 seconds Lungs: clear to ascultation bilateral, no ronchi, no rales, no wheeze, no accessory muscle use Abdominal: soft, nontender to palpation, no guarding, no appreciable organomegaly, normal bowel sounds Ext: no gross muscle atrophy, no contractures Neuro: CN II-XII grossly intact, numbness left thigh to knee, decreased strength in bilateral lower extremities Psych: Alert, oriented, appropriate affect Assessment/Plan: L4/5 lumbar disc herniation with radiculopathy Intractable back pain that failed outpatient treatment with pain management, PT, and steroids -Discussed with Dr. Sauer plan is for OR tomorrow. Perioperative risk stratification -- NSQIP: Lower than average risk for post-op outcomes including serious complication (2.5), (0.0), cardiac (0.0) No additional testing needed prior to surgery Patient is currently medically optimized for surgery. Chronic: THC use, Recent tobacco dependency (quit recently) Thank you for allowing us to participate in the care of this pleasant patient. Do not hesitate to contact us with questions. Someone can be reached from the [facility] hospitalist group all hours of the day at [phone] or via [employer]. Past Medical History Additional Past Medical History / Comment(s): chornic back pain due to herniated disc History of Any Multi-Drug Resistant Organisms: None Reported Past Surgical History: Orthopedic Surgery Additional Past Surgical History / Comment(s): right hand fracutre repair Past Anesthesia/Blood Transfusion Reactions: No Reported Reaction Past Psychological History: No Psychological Hx Reported Smoking Status: Vaper Past Alcohol Use History: None Reported Past Drug Use History: Marijuana - Past Family History Mother Additional Family Medical History / Comment(s): no heart disease Medications and Allergies Home Medications Medication Instructions Recorded Confirmed Type Cyclobenzaprine [Flexeril] 10 mg PO BID 02/24/22 02/24/22 History Gabapentin [Neurontin] 300 mg PO TID 02/24/22 02/24/22 History HYDROcodone/APAP 10-325MG [[place] 1 tab PO Q4HR PRN 02/24/22 02/24/22 History 10-325] Ibuprofen [Motrin] 800 mg PO Q6H PRN 02/24/22 02/24/22 History Allergies Allergy/AdvReac Type Severity Reaction Status Date / Time No Known Allergies Allergy Verified 02/24/22 13:25 Physical Exam Osteopathic Statement: *. No significant issues noted on an osteopathic structural exam other than those noted in the History and Physical/Consult. Vitals: Vital Signs Temp Pulse Resp BP Pulse Ox 02/24/22 13:52 68 18 168/115 98 02/24/22 11:05 98.4 F 103 H 20 159/119 100 Intake and Output 02/24/22 02/24/22 02/24/22 06:59 14:59 22:59 Other: Weight 106.594 kg Results CBC & Chem 7: 02/24/22 11:35 02/24/22 11:35 Labs: Abnormal Lab Results - Last 24 Hours (Table) 02/24/22 Range/Units 11:35 Hgb 17.6 H (13.0-17.5) gm/dL
[2022-02-24] MEDS: GABAPENTIN 100 MG CAP PO SCH ×2 (16:16→22:44)
[2022-02-24] MEDS ORDERED: hydrALAZINE HCL 25 MG TAB PO STA (19:37)
[2022-02-24] MEDS: MELATONIN 3 MG TABLET PO PRN ×2 (19:49→22:45)
[2022-02-24] MEDS: MORPHINE SULFATE 4 MG/ML SYRINGE IVP PRN (19:49)
[2022-02-24] MEDS: oxyCODONE-APAP 5-325MG 1 EACH TAB PO PRN (22:45)
[2022-02-25] MEDS: MORPHINE SULFATE 4 MG/ML SYRINGE IVP PRN (00:35)
[2022-02-25] MEDS ORDERED: LABETALOL 200 MG TAB PO STA (02:20)
[2022-02-25] MEDS: oxyCODONE-APAP 5-325MG 1 EACH TAB PO PRN ×2 (03:24→21:01)
[2022-02-25] MEDS ORDERED: ACETAMINOPHEN IV (For NPO) 1,000 MG in EMPTY BAG 1 BAG IVPB ONE (07:11)
--- NOTE | 2022-02-25 08:03 | P.PN ---
Subjective Progress Note Date: 02/25/22 Principal diagnosis: Low back pain, Leg pain Patient seen and examined at bedside this morning. Upon entering the room patient was asleep. He states that he did not sleep well last night with complaints of burning in his lower back. Patient states his pain is currently controlled at this time. He has been NPO since midnight in preparation for surgical procedure to be performed today L4 to L5 microdiscectomy. Questions and concerns regarding surgical procedure have been addressed, patient verbalizes understanding. Discussed elevated blood pressure, patient states that his blood pressure has been this way for awhile and has not been addressed by PCP. Patient is ambulatory within room. He denies any loss of bowel or bladder. Objective - Vital Signs Vital signs: Vital Signs Temp 98.2 F 02/25/22 01:50 Pulse 71 02/25/22 01:50 Resp 16 02/25/22 01:50 BP 180/138 02/25/22 01:50 Pulse Ox 100 02/25/22 01:50 FiO2 Intake & Output 02/24/22 02/25/22 02/25/22 18:59 06:59 18:59 Weight 106.594 kg 106.594 kg Other: # Voids 2 - Exam Physical Examination General: The patient is awake and alert, in no acute distress Skin: Skin is warm and dry with no obvious rashes or lesions. Hairy patches absent, no dorsal skin dimples, no cafe au lait spots, and no surgical incisions. Eye: Pupils are equal, round and reactive to light, extra-ocular movements are intact; there is normal conjunctiva bilaterally. Neck: The neck is supple, there is no tenderness and ROM intact. Cardiovascular: There is a regular rate and rhythm. No murmur, rub or gallop is appreciated. Respiratory: Lungs are clear to auscultation, respirations are non-labored, breath sounds are equal. Gastrointestinal: Soft, non-distended, non-tender abdomen . Back: There is no tenderness to palpation in the midline, paralumbar, parathoracic or buttocks region. There is no obvious deformity . Musculoskeletal: ROM limited secondary to pain and stiffness from surgical procedure. Shoulder abduction 5/5, elbow flexors 5/5, wrist dorsiflexors 5/5. finger abductor 5/5, haulage engine operator 5/5, hip flexor 4/5, knee flexor 4/5, ankle dorsiflexor 4/5, ankle plantarflexion 4/5 and extensor hallucis 4/5. Neurological: CN 2-12 intact. There are no obvious motor or sensory deficits. Movement and coordination equal and intact. Sensory exam to light touch intact C5-T1 and intact from L2-S1. Reflexes 2/4 in bilateral upper and lower extremities. Negative Hoffmans, babinski, and clonus signs. Psychiatric: Cooperative, appropriate mood & affect, normal judgment. - Labs CBC & Chem 7: 02/24/22 11:35 02/24/22 11:35 Labs: Abnormal Lab Results - Last 24 Hours (Table) 02/24/22 Range/Units 11:35 Hgb 17.6 H (13.0-17.5) gm/dL Assessment and Plan Assessment: 1. Massive L4-5 HNP with severe LBP and radiculopathy 2. LE weakness 3. Debility secondary to #1 Plan: Plan: -Appreciate consulting services and team management -Pain management: Gabapentin, Flexeril, IV Tylenol x1, Dilaudid, Percocet -Hold anticoag -Remain NPO -Surgical Intervention: L4-L5 microdiscectomy
[2022-02-25] MEDS: CYCLOBENZAPRINE 10 MG TAB PO SCH ×3 (08:14→21:01)
[2022-02-25] MEDS: GABAPENTIN 300 MG CAP PO SCH ×3 (08:14→21:01)
[2022-02-25] MEDS: LACTATED RINGERS 1,000 ML IV SCH (13:03)
[2022-02-25] MEDS ORDERED: ONDANSETRON 4 MG/2 ML VIAL IVP ONE (13:16)
[2022-02-25] MEDS ORDERED: DEXAMETHASONE SOD PHOSPHATE 4 MG/ML 1 ML VIAL IVP ONE (13:16)
[2022-02-25] MEDS ORDERED: LACTATED RINGERS 1,000 ML IV ONE (13:24)
[2022-02-25] MEDS ORDERED: TRANEXAMIC ACID IN NACL,ISO-OS 1,000 MG in SALINE 1 100ML.BAG IVPB PRN ×2 (14:00)
[2022-02-25] MEDS ORDERED: BUPIVACAIN-EPI 0.25%-1:200,000 30 ML VIAL SQ ONE (14:07)
[2022-02-25] MEDS ORDERED: THROMBIN (BOVINE) 5,000 UNIT VIAL TOPICAL ONE ×2 (14:07)
[2022-02-25] MEDS ORDERED: GELATIN SPONGE,ABSORB (LARGE) 1 EACH SPONGE TOPICAL ONE (14:07)
[2022-02-25] MEDS ORDERED: LIDOCAINE 0.5% (PF) 5 MG/ML (50 ML SDV) SQ ONE (14:08)
--- NOTE | 2022-02-25 15:29 | P.PN ---
Subjective Progress Note Date: 02/25/22 (delayed charting seen at 1035) Patient is a 31-year-old male with history of chronic back pain, I want use, and recent tobacco use who presented to the ER at the direction of Dr. Sauer for numbness and tingling with worsening back pain. In the ER he underwent an extensive evaluation. On arrival his heart rate was 103 and blood pressure was 159/119. Laboratory analysis was unremarkable. Patient seen and examined at bedside. His pain is better than when he came in. He no longer has numbness and tingling but feels a burning cessation in his left hip. He overall is feeling much improved. General: non toxic, no distress, appears at stated age Derm: warm, dry Head: atraumatic, normocephalic, symmetric Eyes: EOMI, no lid lag, anicteric sclera Mouth: no lip lesion, mucus membranes moist Cardiovascular: S1S2 reg, no murmur, positive posterior tibial pulse bilateral, Lungs: CTA bilateral, no rhonchi, no rales , no accessory muscle use Abdominal: soft, nontender to palpation, no guarding, no appreciable organomegaly Ext: no gross muscle atrophy, no edema, no contractures Neuro: CN II-XI grossly intact, no focal neuro deficits Psych: Alert, oriented, appropriate affect Assessment/Plan: L4/5 lumbar disc herniation with radiculopathy Intractable back pain that failed outpatient treatment with pain management, PT, and steroids - plan is OR today - pain control, muscle relaxors - decadron Chronic: THC use, Recent tobacco dependency (quit recently) Thank you for allowing us to participate in the care of this pleasant patient. Do not hesitate to contact us with questions. Someone can be reached from the [facility] hospitalist group all hours of the day at [phone] or via [employer]. Objective - Vital Signs Vital signs: Vital Signs Temp 97.9 F 02/25/22 13:04 Pulse 69 02/25/22 13:04 Resp 18 02/25/22 13:04 BP 155/103 02/25/22 13:04 Pulse Ox 98 02/25/22 13:04 FiO2 Intake & Output 02/24/22 02/25/22 02/25/22 18:59 06:59 18:59 Intake Total 150 Balance 150 Weight 106.594 kg 106.594 kg Intake: IV 150 Other: # Voids 2 - Labs CBC & Chem 7: 02/24/22 11:35 02/24/22 11:35
[2022-02-25] MEDS ORDERED: SENNOSIDES 8.6 MG TAB PO PRN (16:14)
--- NOTE | 2022-02-25 16:48 | P.PN ---
Progress Note - Text Progress Note Date: 02/25/22 Brief post op: Pt s/e in PACU. He is waking up and able to follow commands. He is moving all 4 ext with good strength. He does not answer questions well however as he is still sleepy. VSS at this time. Nsg at bedside. Anesthesia evaluating. He will be transferred back to the floor when he is awake and stable per PACU staff and anesthesia staff.
[2022-02-25] MEDS ORDERED: HYDROmorphone 0.5 MG/0.5 ML SYRINGE IVP ONE ×2 (16:52→17:03)
[2022-02-25] MEDS: HYDROmorphone 0.5 MG/0.5 ML SYRINGE IVP PRN (19:11)
[2022-02-25] MEDS ORDERED: PROPOFOL 10 MG/ML 20 ML VIAL IV ONE (19:13)
[2022-02-25] MEDS ORDERED: NEOSTIGMINE 1 MG/ML 10 ML VIAL ONE (19:13)
[2022-02-25] MEDS ORDERED: ROCURONIUM 10 MG/ML (5 ML VIAL) IV ONE (19:13)
[2022-02-25] MEDS ORDERED: KETAMINE 10 MG/ML 20 ML VIAL ONE (19:13)
[2022-02-25] MEDS ORDERED: GLYCOPYRROLATE 0.2 MG/ML 2 ML VIAL ONE (19:13)
[2022-02-25] MEDS ORDERED: LIDOCAINE 4% LTA KIT (4 ML) TOPICAL ONE (19:13)
[2022-02-25] MEDS ORDERED: TRANEXAMIC ACID IN NACL,ISO-OS 1,000 MG/100 ML BAG ONE (19:13)
[2022-02-25] MEDS ORDERED: HYDROmorphone (PF) 1 MG/ML ONE (19:13)
[2022-02-25] MEDS ORDERED: MIDAZOLAM 2 MG/2 ML VIAL ONE (19:13)
[2022-02-25] MEDS ORDERED: fentaNYL (PF) 50 MCG/ML 2 ML AMP ONE (19:13)
[2022-02-25] MEDS ORDERED: SUCCINYLCHOLINE CHLORIDE 100 MG/5 ML SYR IV ONE (19:13)
[2022-02-25] MEDS ORDERED: LIDOCAINE 2% INJ 20 MG/ML (2 ML VIAL) ONE (19:13)
[2022-02-25] MEDS: HYDROmorphone 1 MG/ML 1 ML SYRINGE IVP PRN (21:45)
[2022-02-26] MEDS: oxyCODONE-APAP 10-325MG 1 EACH TAB PO PRN ×3 (00:27→08:40)
[2022-02-26] MEDS: HYDROmorphone 1 MG/ML 1 ML SYRINGE IVP PRN (02:28)
[2022-02-26] MEDS ORDERED: HYDROmorphone 1 MG/ML 1 ML SYRINGE IVP PRN (04:15)
[2022-02-26 06:21] LABS: Basophils # (A) 0.1 k/uL (0-0.2); Basophils % (A) 0 %; Eosinophils # (A) 0.1 k/uL (0-0.7); Eosinophils % (A) 1 %; HGB 15.5 gm/dL (13.0-17.5); Lymphocytes # (A) 2.1 k/uL (1.0-4.8); Lymphocytes % (A) 13 %; MCH 30.3 pg (25.0-35.0); MCHC 33.1 g/dL (31.0-37.0); MCV 91.5 fL (80.0-100.0); Mean Platelet Volume 6.8; Monocytes % (A) 6 %; Neutrophils # (A) 13.1 k/uL (1.3-7.7); Neutrophils % (A) 79 %; Platelet Count 228 k/uL (150-450); RBC 5.13 m/uL (4.30-5.90); RDW 12.3 % (11.5-15.5); WBC 16.7 k/uL (3.8-10.6)
[2022-02-26 06:46] LABS: African American GFR (CKD) >90 (>60 ml/min/1.73 sqM); Anion Gap 6 mmol/L; Blood Urea Nitrogen 15 mg/dL (9-20); Calcium 8.9 mg/dL (8.4-10.2); Carbon Dioxide 31 mmol/L (22-30); Chloride 102 mmol/L (98-107); Glucose 95 mg/dL (74-99); Non-African American GFR(CKD) 90 (>60 ml/min/1.73 sqM); Potassium 3.9 mmol/L (3.5-5.1); Sodium 139 mmol/L (137-145)
[2022-02-26] MEDS ORDERED: DEXAMETHASONE SOD PHOSPHATE 10 MG/ML 1 ML VIAL IVP STA (07:46)
--- NOTE | 2022-02-26 07:48 | XR ---
Fluoroscopy INDICATION: Pain FINDINGS: Fluoroscopy time: 10 seconds. Images obtained: 6. IMPRESSIONS: 1. Documentation of fluoroscopy.
[2022-02-26] MEDS: GABAPENTIN 300 MG CAP PO SCH ×3 (07:56→22:11)
[2022-02-26] MEDS: CYCLOBENZAPRINE 10 MG TAB PO SCH ×3 (07:56→22:10)
--- NOTE | 2022-02-26 08:11 | P.PN ---
Subjective Progress Note Date: 02/26/22 Principal diagnosis: Low back pain, Leg pain Patient seen and examined at bedside this morning. Upon entering the room patient was asleep. He states that he did not sleep well last night with complaints of pain and burning across his lower back and radiating to right buttock. He states he feels numbness in this area as well. Patient states his pain has been a 9/10 through the night. Medications have been adjusted. We will reassess patient this afternoon for possible discharge. Patient is ambulatory within room. He denies any loss of bowel or bladder. Objective - Vital Signs Vital signs: Vital Signs Temp 98.0 F 02/26/22 07:22 Pulse 60 02/26/22 07:22 Resp 14 02/26/22 07:22 BP 145/76 02/26/22 07:22 Pulse Ox 99 02/26/22 07:22 FiO2 Intake & Output 02/25/22 02/26/22 02/26/22 18:59 06:59 18:59 Intake Total 1650 Output Total 50 550 Balance 1600 -550 Intake: IV 1650 Output: Urine 550 Estimated Blood Loss 50 Other: Voiding Method Toilet Urinal # Voids 2 - Exam Physical Examination General: The patient is awake and alert, in no acute distress Skin: Skin is warm and dry with no obvious rashes or lesions. Hairy patches absent, no dorsal skin dimples, no cafe au lait spots, surgical incision to lumbar region. Eye: Pupils are equal, round and reactive to light, extra-ocular movements are intact; there is normal conjunctiva bilaterally. Neck: The neck is supple, there is no tenderness and ROM intact. Cardiovascular: There is a regular rate and rhythm. No murmur, rub or gallop is appreciated. Respiratory: Lungs are clear to auscultation, respirations are non-labored, breath sounds are equal. Gastrointestinal: Soft, non-distended, non-tender abdomen . Back: There is tenderness to palpation in the paralumbar and right buttock region. There is no obvious deformity . Musculoskeletal: ROM limited secondary to pain and stiffness from surgical procedure. Shoulder abduction 5/5, elbow flexors 5/5, wrist dorsiflexors 5/5. finger abductor 5/5, roll forming machine set up mechanic 5/5, hip flexor 4/5, knee flexor 4/5, ankle dorsiflexor 4/5, ankle plantarflexion 4/5 and extensor hallucis 4/5. Neurological: CN 2-12 intact. There are no obvious motor or sensory deficits. Movement and coordination equal and intact. Sensory exam to light touch intact C5-T1 and intact from L2-S1. Reflexes 2/4 in bilateral upper and lower extremities. Negative Hoffmans, babinski, and clonus signs. Psychiatric: Cooperative, appropriate mood & affect, normal judgment. - Labs CBC & Chem 7: 02/26/22 05:35 02/26/22 05:35 Labs: Abnormal Lab Results - Last 24 Hours (Table) 02/26/22 02/26/22 Range/Units 05:35 05:35 WBC 16.7 H (3.8-10.6) k/uL Neutrophils # 13.1 H (1.3-7.7) k/uL Carbon Dioxide 31 H (22-30) mmol/L Assessment and Plan Assessment: Post-Op Day 1: L4-L5 microdiscectomy 1. Massive L4-5 HNP with severe LBP and radiculopathy 2. LE weakness 3. Debility secondary to #1 Plan: Plan: -Appreciate engineering consultant and team management. -Activity: Ambulate QID, OOB all meals, up and about, limit lifting bending twisting to less than 5 lbs. Use walker or cane if needed for stability. -Daily PT/OT, increase ambulation strength and balance. -Pain control: Adequate at this time -Meds: reviewed -GI ppx: senna, Miralax -DVT PPX: Heparin -Hygiene: Shower today. Maintain dressing clean and dry. Meticulous cleaning after BMs away from the incision site -Encourage IS 10x/hr -Dispo: Anticipate discharge home this afternoon *I reviewed and discussed this case with my attending Dr. Sauer, whom has reviewed this chart and films and is in agreement with assessment and plan of care as outlined above. I have personally seen and examined the patient, performed the documentation and the assessment and plan as written. Number of minutes spent on the visit: 20m.
--- NOTE | 2022-02-26 09:18 | P.OP ---
Date of Procedure: 02/25/22 Preoperative Diagnosis: 1. L4-5 massive HNP 2. LE radiculopathy 3. LE weakness Postoperative Diagnosis: 1. L4-5 massive HNP 2. LE radiculopathy 3. LE weakness Procedure(s) Performed: 1. Posterior midline approach to lumbar spine 2. Bilateral laminotomy, partial medial facetectomy and foraminotomy with microdiscectomy L4-5 (07716/50) 3. Use of intraoperative microscope 4. Interpretation of intraoperative flouroscopy <1 hr Implants: none Anesthesia: DAISYA Surgeon: Hima Sauer Weight Control Engineer #1: Neda Weiss (Was present and assised in all aspects of the case from positioning to exposure to decompression, discectomy, closure and dressing. ) Estimated Blood Loss (ml): 50 IV fluids (ml): 400 Urine output (ml): 0 Pathology: none sent Condition: stable Disposition: PACU Indications for Procedure: Mr. Motta is presenting for evaluation of sharp low back pain. It was my pleasure to have seen and examined Mr. Motta. In our visit today we have had a chance to go over subjective complaints, physical examination findings and treatments including the natural course history without intervention and various interventional options. The patients imaging demonstrates Massive L4-5 HNP with severe stenosis centrally and b/l foraminally with disc height loss due to this as well. No fracture. No lesions. On physical exam, Mr. Motta demonstrates bilateral lower extremity radiculopathy with weakness and severely resictricted ROM with regards to the lumbar spine. Tensioning signs with positive SLR on L and pos contralateral SLR on Rt. Patient unable to complete most testing due to the severity of his symptoms. I have explained to the patient that as their condition progresses it will cause further neurological deficits and eventual paralysis. Based on the patients imaging, physical exam, and the rapid progression and disabling nature of their symptoms, at this time I recommend surgery in the form or a: L4-L5 Microdiscectomy. I discussed the risk and benefits of this procedure at length with Mr. Motta. The patient agreed to considered pursuing the procedure abovementioned. Prior to surgery, she should follow up with her PCP (Cardio, ID, IM etc) for clearance. Questions were invited and answered, and the patient wishes to proceed as outlined below. Currently, I am recommendin. L4-L5 Microdiscectomy Description of Procedure: The patient was seen and examined in the preoperative area. All preoperative protocols were followed. Informed consent was obtained risks and benefits of the procedure were discussed at length. Risks including bleeding infection damage to the surrounding tissue and risk of reoperation were discussed with the patient. Risk of anesthesia up to and including was a discussed with the patient. These are outlined in the risk review. They were willing to accept these risks and all of the risks of surgery. The patient was given a weight- based dose of antibiotics in the form of 2g ancef . The patient was seen and evaluated by the anesthesia team who deemed them fit for surgery. The site was marked, the patient was willing to proceed with the procedure. The patient was transferred to the operative suite by the Department of anesthe maura. They were then drifted off to sleep by the department anesthesia and GETA was performed. The patient tolerated this well. Once confirmation of lines and ventilation the patient was transferred to a [place] phan frame very carefully. All bony prominences including wrists, elbows, axilla, chest, hips, and thighs, and feet were padded very well. Special attention was paid to the genitalia and these were padded accordingly. SCDs were placed on bilateral lower extremities and were connected. Arms were well padded and placed [on arm boards up and out in the 90/90 position]. Once in position, again we confirmed good ventilation capabilities and that lines were running appropriately. The patient's lumbar spine was then exposed. 1010s were placed outlining the incision site. Standard alcohol was used to clean the incision site and allowed to dry. C-arm was used to biomark the patient and confirm level for incision which was marked with a skin marker. Operative briefing was performed with all teams and everyone in agreement to proceed. The patient was then prepped and draped in a normal sterile fashion. Timeout was then performed and all parties were in agreement with the procedure to be performed. Midline skin incision made over the previously biomarked area and exposure taken down to the lumbar facia which was identified and cleaned with a tellez. We then performed bilateral midline sparing faciiotomies and subperiosteal dissection of the L4 lamina to the L4 pars. A penfield 4 was then placed at the level of the L4 pars and lateral imaging taken to confirm our levels at the L4-5 interspace. We then finished exposure with subperiosteal dissection of L5 revealing L4-5 facet joints and the interlaminar space. The operating microscope was then brought in for micro work. We then performed bilateral hemilaminotomies, partial medial facetectomy and foraminotomies with high speed betty. Inverted U cuts were made in the L4 lamina revealing the ligamentum flavvum which was very hypertrophied in this area. We then made J cuts in the L cranial portion of L5 lamina to expose the L4-5 interspace. We then carefully bone waxed all open bony ends. We then removed the ligamentum and using kerrison rongures performed b/l foraminotomies so that exiting and traversing nerve roots were completely free. We then carefully dissected and mobilized with a penfield 4 the neural elements. The thecal sac was extremely displaced due to the disc herniation eccentrically on the RHS. It was also extremly scarred anteriorly to the annulus. We carefully mobilized this so that we could vizualize the large disc herniation in this area. Nerve root retractor was then gently placed and 11 blade used to make an annulotomy. Micropituitary and upbiting pituitary used then to remove the large disc herniation. Down biting curette was used to push and further disc material back into the the disc space. The space was then irrigated and any loose fragments removed. We then cauterized the annulus to weld it together and placed a small piece of surgicel over the opening. We then repeated this on the LHS due to the degree and how large the herniation was. On ce all free disc fragments were removed from this side we again irrigated, removed any further free fragments, welded the annulotomy together and placed a piece of surgicel over it. We then performed meticulous hemostasis. We then irrigated the wound with 3 L of NSS. We then inspected the site and it was clear and the thecal sac was able to be freely mobilized and had settled back into a more normal position and non displaced. We then took final xrays to confirm our decompression. We then placed 2 g vacomycin powder into the wound and proceeded with layerd closure. Deep facia was closed with #1PDS and 0PDS followed by deep subq tissue with 0 PDS and superficial subq tissue with 2-0 PDS. Subcuticular was closed with 3-0 stratafix monocryl. We then cleaned the wound and dressed it sterrily with Exofin tape and glue allowed it to dry then placed an opitfoam dressing. The patient was transferred back to their hospital bed atraumatically. Patient was then awakened and extubated by the department of anesthesia having tolerated the procedure very well with no complications. They were transferred to the postoperative care unit in stable condition.
--- NOTE | 2022-02-26 11:27 | P.PN ---
Progress Note - Text Progress Note Date: 02/26/22 Pt s/e. Called by medicine doctor as pt is having increased pain and difficulty with ambulation. Upon evaluation of patient he states pain across his low back that is unrelenting. He states that after surgery he was actually doing well and walking the floors but that at around 2 am his pain became very bad and his genitals started to have tingling in them which was intermittent at first but now is more constant. He has good strengths in b/l LE with 5/5 in all major muscle groups and his tensionig sings are lessened than previously before surgery in SLR b/l but they are still painful and stiff. He states it is difficult to walk on his RLE due to pain that is in his back and when his back is palpated he states pain that goes into his b/l buttock region and into his thighs. He is able to urinate and is not retaining but it was hard for him to start a stream. Senstation is intact to LT L2-S1. 2/4 pulses distally. Dressing is CDI no spotting. No flucctuence on palpation. -Suspect post op hematoma with compression -Stat MRI w/w/o of Lumbar spine, if unable to get fast enough then stat CT scan Lumbar spine -Clinical suspicion of hematoma high, will get pt ready for urgent washout due to onset of symptoms, uncontrollable pain and current clinical picture -Discussed risks and benefits again as outlined in previous risk review he understands and agrees. -NPO -Abx currently on.
--- NOTE | 2022-02-26 12:46 | P.PN ---
Progress Note - Text Progress Note Date: 02/26/22 MRI of L spine reviewed. There is redemonstration of severe stenosis L4-5 despite decompressive bilateral laminotomy partial medial facetectomy and foraminotomies with likely reherniation and hematoma. This is causing again sever stenosis. In talking with pt he continues to have tingling in his genitals. PACU nursing stated last night that he was very mobile in bed and very active stating that he was moving more than he probably should have. He did walk around once he was awake last night however on the floor and he stated that he felt OK but that at 2 am, once again, he stated he felt like the genital tingling started again. It was present off and on a week ago when he was seen in office which is why we oped for urgent treatment of his issues originally as he has been dealing with them for so long. His mother stated over 10 years and in the past two is when it has been really bad to the point in the past 1-2 months where he cannot work and that is what prompted all of this in the first place. Due to his MRI findings, his clinical symptoms we are taking him back EMERGENTLY to the OR for decompression , evacuation of hematoma, removal of disc material and decompression with drain placement. We discussed at length risks and benefits of the procedure again as well as potential outcomes and complications. He understands and is willing to assume these risks and all the risks of surgery. We will be going back shortly.
[2022-02-26] MEDS ORDERED: LACTATED RINGERS 1,000 ML IV ONE ×4 (12:49→17:05)
[2022-02-26] MEDS ORDERED: ONDANSETRON 4 MG/2 ML VIAL IVP ONE (13:06)
[2022-02-26] MEDS ORDERED: DEXAMETHASONE SOD PHOSPHATE 4 MG/ML 1 ML VIAL IVP ONE (13:06)
--- NOTE | 2022-02-26 14:16 | P.PN ---
Subjective Progress Note Date: 02/26/22 (delayed charting patient seen at 1103) Patient is a 31-year-old male with history of chronic back pain, THC use, and recent tobacco use who presented to the ER at the direction of Dr. Cristiane meraz or numbness and tingling with worsening back pain. In the ER he underwent an extensive evaluation. On arrival his heart rate was 103 and blood pressure was 159/119. Laboratory analysis was unremarkable. He underwent Bilateral laminotomy, partial medial facetectomy and foraminotomy with microdiscectomy of L4/5 on 02/25/22 Patient seen and examined at bedside. He reports excruciating pain in his lumbar spine. It is below the incision site. He reports that he was doing well initially postop. Nursing reports that he was up and ambulating around the floor. Now he can barely turn over in bed without excruciating pain. He reports to me that he is having some burning sensation in his right buttock. Therapy reported to me that he was unable to bear weight on his right lower extremity with a try to get him out of bed. I did evaluate patient with therapy in the room. He had a hard time getting his leg over the edge the bed and was not pushing on his right leg at all. We stood him up his right leg was spent at the knee and he was not bearing weight on it. When attempting to walk forward he used his arms to bear 90% of his weight. He reports pain in his right buttock and lumbar spine if he bears any weight on the right hip. He is also complaining of difficulty with urination. Case was urgently discussed with Dr. Sauer who recommended stat MRI do to concerns of restenosis and presented to bedside almost immediately to see the patient. General: non toxic, no distress, appears at stated age Derm: warm, dry Head: atraumatic, normocephalic, symmetric Eyes: EOMI, no lid lag, anicteric sclera Mouth: no lip lesion, mucus membranes moist Cardiovascular: S1S2 reg, no murmur, positive posterior tibial pulse bilateral, Lungs: CTA bilateral, no rhonchi, no rales , no accessory muscle use Abdominal: soft, nontender to palpation, no guarding, no appreciable organomegaly Ext: no gross muscle atrophy, no edema, no contractures Neuro: CN II-XI grossly intact Gait: antalgic, right knee flexed, muscle strength equal b/l when in bed but unable to bare weight when walking. Psych: Alert, oriented, appropriate affect Assessment/Plan: L4/5 lumbar disc herniation with radiculopathy Intractable back pain that failed outpatient treatment with pain management, PT, and steroids Redemonstration of symptoms. - D/W Dr. Sauer, stat MRI and likely return to the OR today. - pain control, muscle relaxors - decadron Leukocytosis - suspect reactive + steroids. Chronic: THC use, Recent tobacco dependency (quit recently) Thank you for allowing us to participate in the care of this pleasant patient. Do not hesitate to contact us with questions. Someone can be reached from the [facility] hospitalist group all hours of the day at [phone] or via [employer]. A total of 65 minutes was spent in the care of this patient including contacting and discussing case with Dr. Sauer, discussing case with nursing, therapy, and instrument technologist. Greater than 50% of the time was spent with care and counseling of the patient. Active Medications Generic Name Dose Route Start Last Admin Trade Name Freq PRN Reason Stop Dose Admin Bisacodyl 5 mg 02/24/22 15:10 Bisacodyl 5 Mg Tablet. PO DAILY PRN Constipation Cyclobenzaprine HCl 10 mg 02/25/22 09:00 02/26/22 07:56 Cyclobenzaprine 10 Mg Tab PO 10 mg TID CHICHI Administration Gabapentin 300 mg 02/25/22 09:00 02/26/22 07:56 Gabapentin 300 Mg Cap PO 300 mg TID CHICHI Administration Hydromorphone HCl 0.5 mg 02/25/22 07:12 02/25/22 19:11 Hydromorphone 0.5 Mg/0.5 Ml Syringe IVP 0.5 mg Q3HR PRN Administration Pain Hydromorphone HCl 2 mg 02/26/22 04:15 Hydromorphone 1 Mg/Ml 1 Ml Syringe IVP Q4HR PRN Pain Lactated Ringer's 1,000 mls @ 20 mls/hr 02/25/22 08:03 02/25/22 13:03 Lactated Ringers IV 900 mls .Q24H CHICHI Administration Cefazolin Sodium 2 gm/ Sodium 50 mls @ 100 mls/hr 02/25/22 20:00 02/26/22 11:36 Chloride IVPB 100 mls/hr Q8H CHICHI Administration Protocol Ibuprofen 400 mg 02/24/22 11:37 Ibuprofen 400 Mg Tab PO Q6HR PRN Mild Pain or Fever > 100.5 Melatonin 3 mg 02/24/22 15:10 02/24/22 22:45 Melatonin 3 Mg Tablet PO 3 mg HS PRN Administration Insomnia Naloxone HCl 0.2 mg 02/24/22 11:37 Naloxone 0.4 Mg/Ml 1 Ml Vial IV Q2M PRN Opioid Reversal Ondansetron HCl 4 mg 02/24/22 15:10 Ondansetron 4 Mg/2 Ml Vial IVP Q8HR PRN Nausea And Vomiting Oxycodone/Acetaminophen 1 each 02/24/22 11:37 02/25/22 21:01 Oxycodone-Apap 5-325mg 1 Each Tab PO 1 each Q4HR PRN Administration Severe Pain Oxycodone/Acetaminophen 2 each 02/25/22 07:11 02/26/22 08:40 Oxycodone-Apap 10-325mg 1 Each Tab PO 2 each Q4H PRN Administration Pain Senna 8.6 mg 02/25/22 16:14 Sennosides 8.6 Mg Tab PO DAILY PRN Constipation Objective - Vital Signs Vital signs: Vital Signs Temp 98.3 F 02/26/22 13:02 Pulse 98 02/26/22 13:02 Resp 20 02/26/22 13:02 BP 167/105 02/26/22 13:02 Pulse Ox 99 02/26/22 13:02 FiO2 Intake & Output 02/25/22 02/26/22 02/26/22 18:59 06:59 18:59 Intake Total 1650 200 Output Total 50 550 Balance 1600 -550 200 Intake: IV 1650 200 Output: Urine 550 Estimated Blood Loss 50 Other: Voiding Method Toilet Toilet Urinal Urinal # Voids 2 - Labs CBC & Chem 7: 02/26/22 05:35 02/26/22 05:35 Labs: Abnormal Lab Results - Last 24 Hours (Table) 02/26/22 02/26/22 Range/Units 05:35 05:35 WBC 16.7 H (3.8-10.6) k/uL Neutrophils # 13.1 H (1.3-7.7) k/uL Carbon Dioxide 31 H (22-30) mmol/L
[2022-02-26] MEDS ORDERED: ceFAZolin 3,000 MG in SODIUM CHLORIDE 0.9% IRRIGATIO 3,000 ML IRRIGATION ONE (14:34)
--- NOTE | 2022-02-26 15:55 | MR ---
EXAMINATION TYPE: MR lumbar spine wo/w con DATE OF EXAM: 02/26/2022 COMPARISON: None HISTORY: Post-op hematoma CONTRAST: 0 mL intravenous Gadavist. TECHNIQUE: Multiplanar, multisequence images of the lumbar spine were acquired. FINDINGS: L5-S1: No significant disc bulge or disc herniation. No spinal canal stenosis. No foraminal stenosi s. Neural foramen are patent.. L4-L5: There is a large hypointense collection on T2-weighted sequences which remains hypointense on T1 postcontrast imaging posterior to the L4-5 disc level in the right paracentral region. This measur es 2.4 cm cranial caudal by 1.0 cm AP and has significant mass effect on the adjacent sac. Spinal can al stenosis is present. Appears to extend from the disc herniation present at the L4-5 level in the r ight paracentral region. Enhancement is not evident. Findings could be related to surgery. L3-L4: Disc desiccation is present. No significant disc bulge or disc herniation. No spinal canal st enosis. No foraminal stenosis. Neural foramen are patent.. L2-L3: No significant disc bulge or disc herniation. No spinal canal stenosis. No foraminal stenosi s. Neural foramen are patent.. L1-L2: No significant disc bulge or disc herniation. No spinal canal stenosis. No foraminal stenosi s. Neural foramen are patent.. T12-L1: No significant disc bulge or disc herniation. No spinal canal stenosis. No foraminal stenos is. Neural foramen are patent.. IMPRESSION: 1. Large hypointense collection in the right paracentral region at the L4-5 level has significant mas s effect and spinal canal stenosis. Hematoma could be considered within the differential. Correlate f or infection. This is causing spinal canal stenosis at this level.
--- NOTE | 2022-02-26 16:10 | XR ---
Fluoroscopy INDICATION: Pain FINDINGS: Fluoroscopy time: 1 seconds. Images obtained: 3. IMPRESSIONS: 1. Documentation of fluoroscopy.
[2022-02-26] MEDS ORDERED: ACETAMINOPHEN IV (For NPO) 1,000 MG in EMPTY BAG 1 BAG IVPB ONE (16:23)
[2022-02-26] MEDS: HYDROmorphone 0.5 MG/0.5 ML SYRINGE IVP ONE ×2 (16:40→17:05)
[2022-02-26] MEDS: KETOROLAC 15 MG/ML 1 ML VIAL IVP PRN (16:49)
--- NOTE | 2022-02-26 17:08 | P.PN ---
Progress Note - Text Progress Note Date: 02/26/22 Brief Post op Note: Pt s/e in PACU with nursing at bedside. He is doing OK some pain at this time. He is trying to void in urinal. VSS at this time. He is moving all 4 ext with 5/5 strength. He c/o some stinging in the tip of his penis, but he did have a catheter for surgery which was removed. He does states some tingling in his penis as well but scrotum is OK and he does have good sensation in his scrotum, penis and perineal region. He states no pain down his legs at this time and has no tensioning signs or pathological reflexes currently. He states his back pain is better as well. Denies any other sx at this time. We will continue to monitor him and he will get medications Gabapentin, Decadron, Toradol, Percocet, Dilaudid as needed. He will transfer to the floor when he is awake and stable per PACU and anesthesia staff. I spoke with his mother in the lobby and explained everything to her including the possiblity of him needing further surgery and even a fusion at some point given the massive nature of his disc herniation and how much disc we needed to remove in order to decompress him fully and the chronic nature of it. She understood. We will continue to monitor him. -Maintain drain record output -Pain control as needed -Neuro checks q3 hr -GI ppx -Hold anticoags for 24 hrs -SCDs, TEDs -PT/OT daily -Ambulate ad gabriel -LSO brace ordered to help pt with pain and help him mobilize as well as protect him. He does not need to get up to go to bathroom or initialize PT
--- NOTE | 2022-02-26 17:29 | P.OP ---
Date of Procedure: 02/26/22 Preoperative Diagnosis: 1. Post op hematoma lumbar spine 2. L4-5 large HNP with possible re-herniation 3. Impending cauda equina Postoperative Diagnosis: 1. Post op hematoma lumbar spine 2. L4-5 large HNP with severe stenosis 3. Impending cauda equina Procedure(s) Performed: 1. Revision posterior midline approach to lumbar spine 2. Irrigation and debridement skin, soft tissue, muscle and bone with Evacuation hematoma Lumbar spine using the following: knife to debride skin Kerrison and curette to debride bone Suction to remove hematoma 6L irrigation 3. Revision bilateral laminectomy, partial medial facetectomy and foraminotomy L3-5 with revision discectomy L4-5 ([id number], [id number]) 4. Use of inraoperative microscope 5. Interpretation of inraoperative flouroscopy <1 hr ([id number]) Implants: none Anesthesia: GETA Surgeon: Hima Sauer Patient Service Rep #1: Neda Weiss (Was present and assisted in all aspects of the case from positionoing, debridement, decomperssion, discectomy, irrigation, closure and dressing placement. ) Estimated Blood Loss (ml): 100 IV fluids (ml): 1,100 Urine output (ml): 300 Pathology: other (L4-5 Epidural mass/Disc) Condition: stable Disposition: PACU Indications for Procedure: 31 yo male under went L4-5 bilateral laminotomy, partial medial facetectomy and foraminotomy with microdiscectomy yesterday 02/25/22 without incident. A large disc herniation was removed and he was decompressed in this area. He initially did OK after the surgery walking around the floor and using a walker. He stated this AM then on rounds that at 2 am he felt like his genitals were going numb and tingling intermittently. He also stated it became very difficult to walk and very painful to walk around the floor and his hospital room. Upon evaluati on he was in extreme pain that was not controlled well with medications. He had decreased sensation in his genitals. He still had 5/5 strength in b/l LE with good sensation in his b/l LE. There were some but minimal tensioning signs b/l LE. Due to his groin symptoms and his sudden increased pain stat MRI of his L spine was obtained which showed continued compression, hematoma and likely reherniation of disc material at L4-5. It was elected then after speaking with the patient and his mother to take him back to the OR emergent for exploration, evacuation of hematoma and re-decompression of L4-5. All risks and benefits were discussed at length with the patient and his mother including but not limited to risk of bleeding, infection, damage to surrounding tissues, nerve damage, continued symptoms, need for further operations, risk of anesthesia up to and including . They were willing to assume these risks and all the risks of surgery. He was willing to proceed with the procedure. Description of Procedure: The patient was seen and examined in the preoperative area. All preoperative protocols were followed. Informed consent was obtained risks and benefits of the procedure were discussed at length. Risks including bleeding infection damage to the surrounding tissue and risk of reoperation were discussed with the patient. Risk of anesthesia up to and including was a discussed with the patient. These are outlined in the risk review. They were willing to accept these risks and all of the risks of surgery. The patient was given a weight- based dose of antibiotics in the form of 2g ancef . The patient was seen and evaluated by the anesthesia team who deemed them fit for surgery. The site was marked, the patient was willing to proceed with the procedure. The patient was transferred to the operative suite by the Department of anesthesia. They were then drifted off to sleep by the department anesthesia and GETA was performed. The patient tolerated this well. Once confirmation of lines and ventilation the patient was transferred to a [place] frame very carefully. All bony prominences including wrists, elbows, axilla, chest, hips, and thighs, and feet were padded very well. Special attention was paid to the genitalia and these were padded accordingly. SCDs were placed on bilateral lower extremities and were connected. Arms were well padded and placed [on arm boards up and out in the 90/90 position]. Once in position, again we confirmed good ventilation capabilities and that lines were running appropriately. The patient's lumbar spine was then exposed. 1010s were placed outlining the incision site. Standard alcohol was used to clean the incision site and allowed to dry. Operative briefing was performed with all teams and everyone in agreement to proceed. The patient was then prepped and draped in a normal sterile fashion. Timeout was then performed and all parties were in agreement with the procedure to be performed. Midline skin incision made over the previously incised area and exposure taken down to the lumbar facia which was identified and cleaned with a tellez. Previous sutures were removed and we debrided the skin and soft tissue with curettes and a knife. I then continued with the exploration and exposure down to the previous decompression. The facia was entered and there was a hematoma that was under pressure in this area that came out and was evacuated. I then continued with exposure down to the previous decompression and inspected it. There were no bleeding areas but because of the MRI findings a bilateral laminectomy was performed of L4 up to L3. I then performed an inverted U cut in the caudal portion of L3 in order to remove the central portion entirely of L4 and gain a good decompression of this whole space. I also performed a U cut into the cranial portion of L5 to extend the decompression caudally without compromising stability. The operating microscope was then brought in for micro work. The thecal sac was again extremely re-displaced on the RHS due to presumed re- herniation in this area. As I explored I noted on the extreme ventral surface of the thecal sac another scarred area which was different than the first. This had the appearance of the dura, but did not appear to have fluid in it but more of a pseudo capsule. I carefully continued to mobilize the dura further so that I could reach this area as it was so far anterior and scarred. Once I was able to get to this area I found a rent in the capsule and was able to khadar another massive portion of nucleus from this area. This seemed to extend cranially and caudally from L4-5 up to the level we just decompressed at L3 and L5. This was removed entirely and this void was carefully inspected. There were no injuries to the thecal sac, however the scar and pseudocapsule in this area was exhuberent and essentially in an area nearly non accessible without increased risk to the dura, but because of the massive nature of the herniation and it trying to erode into the thecal sac we had to remove this and so careful dissection was done with a penfield 4 as well as bipolar. We removed this and the disc material and was sent to pathology for review. We then performed meticulous hemostasis of the area and copiously irrigated the disc space. Any further free fragments were removed with a pituitary. Bipolar EC was then used again to cauterize the annulus to create a scar patch. We then copiously irrigated the entire wound with 3 L of abx saline solution followed by some Irricept followed by 3 L of NSS. We then inspected the area again under microscope and there was good decompression, thecal sac was again midline and stable without injury and exiting and traversing nerveroots were free and safe. Again, meticulous hemostasis was performed and ensured. Bone Edges were waxed. We then took final xrays to confirm our decompression. A randy drain was placed and secured with a stitch. We then proceeded with layerd closure. Deep facia was closed with #1PDS and 0PDS followed by deep subq tissue with 0 PDS and superficial subq tissue with 2-0 PDS. Skin was closed with skin gino and wound edges approximated very well. We then cleaned the wound and dressed it sterrily with an opitfoam dressing. The patient was transferred back to their hospital bed atraumatically. Drain continued to hold suction. Patient was then awakened and extubated by the department of anesthesia having tolerated the procedure very well with no complications. They were transferred to the postoperative care unit in stable condition.
[2022-02-26] MEDS: DEXAMETHASONE SOD PHOSPHATE 4 MG/ML 1 ML VIAL IVP SCH ×2 (17:39→23:52)
--- NOTE | 2022-02-26 20:02 | P.PN ---
Progress Note - Text Progress Note Date: 02/26/22 Spoke with pt over the phone he is doing well. Feeling much better. Was able to urinate on his own and has no numbness/tingling in his genitals at this time. He has no pain in his legs and only in his back from the surgery. He states he feels much better. NSg states he is doing well. No issues currently. We will see him in the AM.
[2022-02-26] MEDS: oxyCODONE-APAP 5-325MG 1 EACH TAB PO PRN (22:11)
[2022-02-26] MEDS: LACTATED RINGERS 1,000 ML IV SCH (22:23)
[2022-02-26] MEDS: HYDROmorphone 0.5 MG/0.5 ML SYRINGE IVP PRN (23:54)
[2022-02-27] MEDS: DEXAMETHASONE SOD PHOSPHATE 4 MG/ML 1 ML VIAL IVP SCH ×4 (05:24→23:10)
[2022-02-27] MEDS: KETOROLAC 15 MG/ML 1 ML VIAL IVP PRN (05:26)
[2022-02-27 06:02] LABS: HGB 14.8 gm/dL (13.0-17.5); MCH 30.8 pg (25.0-35.0); MCHC 33.6 g/dL (31.0-37.0); MCV 91.5 fL (80.0-100.0); Platelet Count 257 k/uL (150-450); RBC 4.81 m/uL (4.30-5.90); RDW 12.8 % (11.5-15.5); WBC 17.4 k/uL (3.8-10.6)
[2022-02-27 06:32] LABS: African American GFR (CKD) >90 (>60 ml/min/1.73 sqM); Anion Gap 7 mmol/L; Blood Urea Nitrogen 14 mg/dL (9-20); Calcium 8.8 mg/dL (8.4-10.2); Carbon Dioxide 29 mmol/L (22-30); Chloride 103 mmol/L (98-107); Glucose 117 mg/dL (74-99); Non-African American GFR(CKD) >90 (>60 ml/min/1.73 sqM); Potassium 4.1 mmol/L (3.5-5.1); Sodium 139 mmol/L (137-145)
[2022-02-27] MEDS: CYCLOBENZAPRINE 10 MG TAB PO SCH ×3 (07:10→21:03)
[2022-02-27] MEDS: GABAPENTIN 300 MG CAP PO SCH ×3 (07:10→21:03)
[2022-02-27] MEDS: oxyCODONE-APAP 5-325MG 1 EACH TAB PO PRN ×2 (07:11→11:21)
[2022-02-27] MEDS: LACTATED RINGERS 1,000 ML IV SCH (07:15)
--- NOTE | 2022-02-27 12:49 | P.PN ---
Subjective Progress Note Date: 02/27/22 Hospital course: Patient is a very pleasant 31-year-old male with history of chronic back pain, THC use, and recent tobacco use. Pt presented to the ER on 02/24/22 at the direction of Dr. Sauer for numbness and tingling with worsening back pain. In the ER pt underwent an extensive evaluation. He was found to be tachycardic with heart rate 103 and hypertensive with blood pressure 159/119. Laboratory analysis was unremarkable. Patient was admitted under orthospine surgery team and we were consulted for continued medical management throughout his hospit alization. On 02/25/22 patient underwent bilateral laminectomy with partial medial facetectomy and foraminotomy with microdiscectomy of L4 and L5. On 02/26/22 patient reportedly went from doing very well and ambulating in room to suddenly experiencing increased pain to lumbar spine slightly below the surgical incision site, difficulties with urination and new onset inability to bear weight on right lower extremity. Orthospine surgeon was notified immediately and stat MRI was completed revealing large hypointense collection in the right paracentral region at L4 through L5 level with significant mass effect and spinal canal stenosis. Patient was taken back in to surgery urgently by Dr. Sauer and underwent emergent irrigation and debridement with evacuation of hematoma of lumbar spine with revision of bilateral laminectomy, partial medial facetectomy and foraminotomy L3 through 5 with revision discectomy L4 through L5. Physical examination: Upon examination this morning at bedside. Patient sitting up in recliner. He reports significant improvement in pain. Patient reports he has been ambulated in the room. Patient reports he is walking slightly hunched over but states no longer experiencing significant pain and denies having any weakness/tingling/numbness. Patient reports he is urinating without any difficulties and tolerating oral intake without any episodes of nausea or vomiting. Labs reviewed and stable with the exception of mild leukocytosis with WBC count of 17.4, this is believed to be reactive secondary to recent procedures as well as steroid administration. General: non toxic, no distress, appears at stated age Derm: warm, dry. Dressing to midline lumbar spine is clean dry and intact with no drainage or bleeding noted. Drain remains in place. Head: atraumatic, normocephalic, symmetric Eyes: EOMI, no lid lag, anicteric sclera Mouth: no lip lesion, mucus membranes moist Cardiovascular: S1S2 reg, no murmur, positive posterior tibial pulse bilateral, Lungs: CTA bilateral, no rhonchi, no rales , no accessory muscle use Abdominal: soft, nontender to palpation, no guarding, no appreciable organomegaly Ext: no gross muscle atrophy, no edema, no contractures Neuro: CN II-XI grossly intact, no focal neuro deficits Psych: Alert, oriented, appropriate affect Assessment and plan of care: Intractable back pain that failed outpatient treatment with pain management, PT, and steroids L4/5 lumbar disc herniation with radiculopathy Status post bilateral laminectomy with partial medial facetectomy and foraminotomy with microdiscectomy of L4 and L5 on 02/25/22 Status post emergent irrigation and debridement with evacuation of hematoma of lumbar spine with revision of bilateral laminectomy, partial medial facetectomy and foraminotomy L3 through 5 with revision discectomy L4 through L5. -Admitted under orthospine surgery team -Management per primary admitting orthopedic surgery team including DVT prophylaxis, postop dressing changes, drain care, pain management, weightbearing, and PT/OT. -DVT prophylaxis currently with SCDs -We will continue to monitor patient and provide symptomatic care and pain management -Continue decadron 4 mg IVP every 6 hours Leukocytosis -Likely reactive secondary to recent procedures as well as steroid administration. We will continue to monitor. Chronic: THC use, Recent tobacco dependency (quit recently) Thank you for allowing us to participate in the care of this pleasant patient. Do not hesitate to contact us with questions. Someone can be reached from the [facility] [place] hospitalist group all hours of the day at [phone] or via [employer]. I reviewed the documentation as provided by the NAKUL above, who is the original author of this note. I agree with the documented assessment and plan, with the following changes: None Objective - Vital Signs Vital signs: Vital Signs Temp 97.8 F 02/27/22 07:53 Pulse 64 02/27/22 07:53 Resp 15 02/27/22 02:00 BP 124/65 02/27/22 07:53 Pulse Ox 97 02/27/22 07:53 FiO2 Intake & Output 02/26/22 02/27/22 02/27/22 18:59 06:59 18:59 Intake Total 1901 Output Total 400 800 80 Balance 1501 -800 -80 Intake: IV 1901 Output: Drainage 80 Medial Back 80 Urine 300 800 Estimated Blood Loss 100 Other: Voiding Method Toilet Toilet Urinal Urinal - Labs CBC & Chem 7: 02/27/22 05:21 02/27/22 05:21 Labs: Abnormal Lab Results - Last 24 Hours (Table) 02/27/22 02/27/22 Range/Units 05:21 05:21 WBC 17.4 H (3.8-10.6) k/uL Glucose 117 H (74-99) mg/dL
[2022-02-27] MEDS ORDERED: NEOSTIGMINE 1 MG/ML 10 ML VIAL ONE (13:39)
[2022-02-27] MEDS ORDERED: HYDROmorphone (PF) 1 MG/ML ONE (13:39)
[2022-02-27] MEDS ORDERED: LIDOCAINE 2% INJ 20 MG/ML (2 ML VIAL) ONE (13:39)
[2022-02-27] MEDS ORDERED: SUCCINYLCHOLINE CHLORIDE VIAL 200 MG/10 ML VIAL IV ONE (13:39)
[2022-02-27] MEDS ORDERED: LIDOCAINE 4% LTA KIT (4 ML) TOPICAL ONE (13:39)
[2022-02-27] MEDS ORDERED: GLYCOPYRROLATE 0.2 MG/ML 2 ML VIAL ONE (13:39)
[2022-02-27] MEDS ORDERED: MIDAZOLAM 2 MG/2 ML VIAL ONE (13:39)
[2022-02-27] MEDS ORDERED: ROCURONIUM 10 MG/ML (5 ML VIAL) IV ONE (13:39)
[2022-02-27] MEDS ORDERED: PROPOFOL 10 MG/ML 20 ML VIAL IV ONE (13:39)
[2022-02-27] MEDS ORDERED: fentaNYL (PF) 50 MCG/ML 2 ML AMP ONE (13:39)
--- NOTE | 2022-02-27 15:40 | P.PN ---
Subjective Progress Note Date: 02/27/22 Principal diagnosis: Status post revision laminectomy decompression and discectomy L4-L5, L3-L4 laminectomy and decompression evacuation of hematoma, Patient was examined today at bedside, Dr. Sauer was also available. Patient is sitting up in his hospital chair. Patient has been utilizing the walker for ambulation. We are waiting for the LSO brace to be delivered and fitted. Patient states that the pain is significantly improved since his most recent surgery. He's having no numbness or tingling in the genital or perineal region. He denies any sharp shooting pain down the bilateral legs. He has some vague numbness and discomfort in the low back but significantly improved. He notes no issues with urinating, he is passing gas. Objective - Vital Signs Vital signs: Vital Signs Temp 97.8 F 02/27/22 07:53 Pulse 64 02/27/22 07:53 Resp 15 02/27/22 07:00 BP 124/65 02/27/22 07:53 Pulse Ox 97 02/27/22 07:53 FiO2 Intake & Output 02/26/22 02/27/22 02/27/22 18:59 06:59 18:59 Intake Total 1901 Output Total 400 800 80 Balance 1501 -800 -80 Intake: IV 1901 Output: Drainage 80 Medial Back 80 Urine 300 800 Estimated Blood Loss 100 Other: Voiding Method Toilet Toilet Toilet Urinal Urinal Urinal - Exam Gen: AOx3, NAD VSS stable at this time Integument: Incisions are well healing at this time, bandages are in good position and condition. 80 mls of output overnight, there is about 20 mL sitting and draining currently. Palpation: Mild tenderness to palpation to the midline paraspinal region in the lower lumbar spine ROM: Full range of motion in all major muscle groups to bilateral upper and lower extremities, no focal deficits Sensory Exam: Senory exam to light touch is intact C5-T1 Senosry exam to light touch is intact L2-S1 Motor: 55 strength appreciate the bilateral upper extremities with shoulder elevation, shoulder abduction, wrist extension, wrist flexion, elbow extension, elbow flexion, payroll accounting specialist 4/5 strength appreciate in the bilateral lower extremities with hip flexion, knee extension, knee flexion 55 strength appreciate in the bilateral lower extremities with plantar flexion, dorsiflexion, EHL, FHL Reflexes: 2/4 in all UE and LE Negative Harinder's bilaterally Negative Babinski bilaterally Negative clonus bilaterally - Labs CBC & Chem 7: 02/27/22 05:21 02/27/22 05:21 Labs: Abnormal Lab Results - Last 24 Hours (Table) 02/27/22 02/27/22 Range/Units 05:21 05:21 WBC 17.4 H (3.8-10.6) k/uL Glucose 117 H (74-99) mg/dL Assessment and Plan Assessment: Postoperative day #1 status post revision laminectomy with decompression and discectomy L4-L5, L3-L4 laminectomy with decompression, hematoma evacuation Plan: Pain control, continue with current oral medications. I did adjust them to utilize also Causey 10 mg/325 mg. We will attempt to wean patient from the Percocet as needed. We have also decreased the Dilaudid dose. DVT prophylaxis, SCDs while in bed Senna and MiraLAX for constipation Discussed activity level restrictions, no bending, twisting or lifting. Patient can ambulate gingerly with a walker without brace. Encourage incentive spirometer Depending on output of drain, we'll likely remove 02/28/2022 Medical recommendations Discharge planning: We'll keep patient in hospital until 03/01/2022 with hopeful discharge to home at that time Time with Patient: Less than 30
[2022-02-27] MEDS: polyethylene glycoL 3350 17 GM POWD.PACK PO SCH (16:34)
[2022-02-27] MEDS: HYDROcodone/APAP 10-325MG 1 EACH TAB PO PRN ×2 (16:57→22:00)
[2022-02-28] MEDS: DEXAMETHASONE SOD PHOSPHATE 4 MG/ML 1 ML VIAL IVP SCH ×4 (05:20→23:03)
[2022-02-28] MEDS: HYDROcodone/APAP 10-325MG 1 EACH TAB PO PRN ×4 (05:20→23:04)
--- NOTE | 2022-02-28 06:18 | P.PN ---
Subjective Progress Note Date: 02/28/22 Principal diagnosis: Status post revision laminectomy decompression and discectomy L4-L5, L3-L4 laminectomy and decompression evacuation of hematoma, Patient is examined today bedside, he is resting in his hospital bed. He appears to be in no acute distress, his pain is controlled. He denies any paresthesias of the bilateral lower extremity. He denies any numbness or tingl ing of the genital or perineal region. She needs to have no issues with urination, he is passing gas. Discussed with nursing, his drain did have about 90 mL of output overnight. The also brace was delivered yesterday and patient was fitted for it. Objective - Vital Signs Vital signs: Vital Signs Temp 97.6 F 02/28/22 02:00 Pulse 73 02/28/22 02:00 Resp 20 02/28/22 02:00 BP 144/84 02/28/22 02:00 Pulse Ox 98 02/28/22 02:00 FiO2 Intake & Output 02/27/22 02/27/22 02/28/22 06:59 18:59 06:59 Output Total 800 430 90 Balance -800 -430 -90 Output: Drainage 80 90 Medial Back 80 90 Urine 800 350 Other: Voiding Method Toilet Toilet Urinal Urinal # Voids 2 - Exam Gen: AOx3, NAD VSS stable at this time Integument: Incisions are well healing at this time, bandages are in good position and condition. Palpation: Mild tenderness to palpation to the midline paraspinal region in the lower lumbar spine ROM: Full range of motion in all major muscle groups to bilateral upper and lower extremities, no focal deficits Sensory Exam: Senory exam to light touch is intact C5-T1 Senosry exam to light touch is intact L2-S1 Motor: 55 strength appreciate the bilateral upper extremities with shoulder elevation, shoulder abduction, wrist extension, wrist flexion, elbow extension, elbow flexion, pole tester 4+/5 strength appreciate in the bilateral lower extremities with hip flexion, knee extension, knee flexion 55 strength appreciate in the bilateral lower extremities with plantar flexion, dorsiflexion, EHL, FHL Reflexes: 2/4 in all UE and LE Negative Harinder's bilaterally Negative Babinski bilaterally Negative clonus bilaterally - Labs CBC & Chem 7: 02/27/22 05:21 02/27/22 05:21 Labs: Abnormal Lab Results - Last 24 Hours (Table) 02/27/22 Range/Units 05:21 Glucose 117 H (74-99) mg/dL Assessment and Plan Assessment: Postoperative day #2 status post revision laminectomy with decompression and discectomy L4-L5, L3-L4 laminectomy with decompression, hematoma evacuation Plan: Pain control, continue with current medication DVT prophylaxis, TEDS and SCDs while in bed Senna and MiraLAX for constipation Wound care, pending minimal output hopeful removal of drain on 03/01/2022. We'll plan for a full dressing change at that time. Patient okay to shower today Discussed activity level restrictions, no bending, twisting or lifting. Patient to utilize brace when up and ambulating . Encourage incentive spirometer Medical recommendations Discharge planning: After discharge home on 03/01/2022 Time with Patient: Less than 30
[2022-02-28] MEDS: polyethylene glycoL 3350 17 GM POWD.PACK PO SCH (07:18)
[2022-02-28] MEDS: GABAPENTIN 300 MG CAP PO SCH ×3 (07:18→21:14)
[2022-02-28] MEDS: CYCLOBENZAPRINE 10 MG TAB PO SCH ×3 (07:18→21:14)
[2022-02-28] MEDS: LACTATED RINGERS 1,000 ML IV SCH (07:18)
[2022-02-28] MEDS: HYDROmorphone 0.5 MG/0.5 ML SYRINGE IVP PRN (12:50)
[2022-02-28 13:05] LABS: HCT 44.1 % (39.0-53.0); HGB 14.6 gm/dL (13.0-17.5); MCH 30.6 pg (25.0-35.0); MCHC 33.1 g/dL (31.0-37.0); MCV 92.3 fL (80.0-100.0); Mean Platelet Volume 7.4; Platelet Count 271 k/uL (150-450); RBC 4.78 m/uL (4.30-5.90); RDW 12.8 % (11.5-15.5); WBC 15.1 k/uL (3.8-10.6)
[2022-02-28 13:21] LABS: ALT 14 U/L (4-49); AST 21 U/L (17-59); African American GFR (CKD) >90 (>60 ml/min/1.73 sqM); Albumin 4.1 g/dL (3.5-5.0); Albumin/Globulin Ratio 1.5; Alkaline Phosphatase 59 U/L (38-126); Anion Gap 9 mmol/L; Blood Urea Nitrogen 16 mg/dL (9-20); Carbon Dioxide 28 mmol/L (22-30); Chloride 101 mmol/L (98-107); Globulin 2.8 g/dL; Glucose 157 mg/dL (74-99); Non-African American GFR(CKD) >90 (>60 ml/min/1.73 sqM); Potassium 3.9 mmol/L (3.5-5.1); Sodium 138 mmol/L (137-145); Total Bilirubin 0.9 mg/dL (0.2-1.3); Total Protein 6.9 g/dL (6.3-8.2)
--- NOTE | 2022-02-28 15:36 | P.PN ---
Subjective Progress Note Date: 02/28/22 Hospital course: Patient is a very pleasant 31-year-old male with history of chronic back pain, THC use, and recent tobacco use. Pt presented to the ER on 02/24/22 at the direction of Dr. Sauer for numbness and tingling with worsening back pain. In the ER pt underwent an extensive evaluation. He was found to be tachycardic with heart rate 103 and hypertensive with blood pressure 159/119. Laboratory analysis was unremarkable. Patient was admitted under orthospine surgery team and we were consulted for continued medical management throughout his hospit alization. On 02/25/22 patient underwent bilateral laminectomy with partial medial facetectomy and foraminotomy with microdiscectomy of L4 and L5. On 02/26/22 patient reportedly went from doing very well and ambulating in room to suddenly experiencing increased pain to lumbar spine slightly below the surgical incision site, difficulties with urination and new onset inability to bear weight on right lower extremity. Orthospine surgeon was notified immediately and stat MRI was completed revealing large hypointense collection in the right paracentral region at L4 through L5 level with significant mass effect and spinal canal stenosis. Patient was taken back in to surgery urgently by Dr. Sauer and underwent emergent irrigation and debridement with evacuation of hematoma of lumbar spine with revision of bilateral laminectomy, partial medial facetectomy and foraminotomy L3 through 5 with revision discectomy L4 through L5. Physical examination: Patient had some noted episodes of hypertension throughout the night. This is likely associated with pain, we will continue to monitor for now but did have long discussion with patient regarding needs for monitoring blood pressure at home upon discharge as patient reports he has also had previous episodes where he thought his blood pressure was running high. LSO brace is in place and patient continues to report improvement in lower back pain. Drain remains in place, likely to be removed by orthospine surgery team tomorrow. Patient reports he continues to urinate without any difficulties denies any numbness/tingling/weakness in his extremities today. General: non toxic, no distress, appears at stated age Derm: warm, dry. PLUSH BRUSHER brace in place. Drain remains in place. Head: atraumatic, normocephalic, symmetric Eyes: EOMI, no lid lag, anicteric sclera Mouth: no lip lesion, mucus membranes moist Cardiovascular: S1S2 reg, no murmur, positive posterior tibial pulse bilateral, Lungs: CTA bilateral, no rhonchi, no rales , no accessory muscle use Abdominal: soft, nontender to palpation, no guarding, no appreciable organomegaly Ext: no gross muscle atrophy, no edema, no contractures Neuro: CN II-XI grossly intact, no focal neuro deficits Psych: Alert, oriented, appropriate affect Assessment and plan of care: Intractable back pain that failed outpatient treatment with pain management, PT, and steroids L4/5 lumbar disc herniation with radiculopathy Status post bilateral laminectomy with partial medial facetectomy and foraminotomy with microdiscectomy of L4 and L5 on 02/25/22 Status post emergent irrigation and debridement with evacuation of hematoma of lumbar spine with revision of bilateral laminectomy, partial medial facetectomy and foraminotomy L3 through 5 with revision discectomy L4 through L5. -Admitted under orthospine surgery team -Management per primary admitting orthopedic surgery team including DVT prophylaxis, postop dressing changes, drain care, pain management, weightbearing, and PT/OT. -DVT prophylaxis currently with SCDs -We will continue to monitor patient and provide symptomatic care and pain management -Continue decadron 4 mg IVP every 6 hours Leukocytosis , improving -Likely reactive secondary to recent procedures as well as steroid administration. We will continue to monitor. Chronic: THC use, Recent tobacco dependency (quit recently) Thank you for allowing us to participate in the care of this pleasant patient. Do not hesitate to contact us with questions. Someone can be reached from the [facility] hospitalist group all hours of the day at [phone] or via [employer]. I reviewed the documentation as provided by the NAKUL above, who is the original author of this note. I agree with the documented assessment and plan, with the following changes: none Objective - Vital Signs Vital signs: Vital Signs Temp 97.6 F 02/28/22 02:00 Pulse 73 02/28/22 02:00 Resp 20 02/28/22 02:00 BP 144/84 02/28/22 02:00 Pulse Ox 98 02/28/22 02:00 FiO2 Intake & Output 02/27/22 02/28/22 02/28/22 18:59 06:59 18:59 Output Total 430 290 Balance -430 -290 Output: Drainage 80 90 Medial Back 80 90 Urine 350 200 Other: Voiding Method Toilet Urinal # Voids 2 - Labs CBC & Chem 7: 03/01/22 04:29 03/01/22 04:29
[2022-02-28 20:07] VITALS: RESP 16
[2022-03-01 02:07] VITALS: TEMP 97.8
[2022-03-01] MEDS: DEXAMETHASONE SOD PHOSPHATE 4 MG/ML 1 ML VIAL IVP SCH ×2 (05:04→12:23)
[2022-03-01] MEDS: HYDROcodone/APAP 10-325MG 1 EACH TAB PO PRN (05:04)
[2022-03-01] MEDS: CYCLOBENZAPRINE 10 MG TAB PO SCH (08:17)
[2022-03-01] MEDS: polyethylene glycoL 3350 17 GM POWD.PACK PO SCH (08:17)
[2022-03-01] MEDS: GABAPENTIN 300 MG CAP PO SCH (08:17)
[2022-03-01 08:54] LABS: HCT 42.8 % (39.6-50.0); HGB 13.9 g/dL (13.0-17.0); MCH 29.9 pg (27.0-32.0); MCHC 32.5 g/dL (32.0-37.0); Mean Platelet Volume 10.1 fL (9.5-12.2); NRBC Per 100 WBC 0 /100 WBCS (0.0-0.0); Platelet Count 252 X 10*3/uL (140-440); RBC 4.65 X 10*6/uL (4.40-5.60); RDW 12.5 % (11.5-14.5); WBC 12.31 X 10*3/uL (4.50-10.00)
[2022-03-01] MEDS: LACTATED RINGERS 1,000 ML IV SCH (09:00)
--- NOTE | 2022-03-01 09:01 | P.PN ---
Subjective Progress Note Date: 03/01/22 Principal diagnosis: Low back pain, Leg pain Patient seen and examined at bedside this morning. Patient resting in bed laying on his left side. Patient is currently denying any pain. States that his pain is controlled on current regimen. He states that he is feeling much better since surgery, denies any numbness tingling to bilateral lower extremities. Patient is ambulatory within room. He denies any loss of bowel or bladder. Patient will be discharged later this afternoon. Prescription for a rolling walker was placed in chart. Objective - Vital Signs Vital signs: Vital Signs Temp 97.8 F 03/01/22 02:00 Pulse 62 03/01/22 02:00 Resp 16 03/01/22 02:00 BP 149/74 03/01/22 02:00 Pulse Ox 95 03/01/22 02:00 FiO2 Intake & Output 02/28/22 03/01/22 03/01/22 18:59 06:59 18:59 Output Total 20 Balance -20 Output: Drainage 20 Medial Back 20 Other: Voiding Method Toilet Urinal - Exam Physical Examination General: The patient is awake and alert, in no acute distress Skin: Skin is warm and dry with no obvious rashes or lesions. Hairy patches absent, no dorsal skin dimples, no cafe au lait spots, surgical incision to lumbar region, hemovac present. Eye: Pupils are equal, round and reactive to light, extra-ocular movements are intact; there is normal conjunctiva bilaterally. Neck: The neck is supple, there is no tenderness and ROM intact. Cardiovascular: There is a regular rate and rhythm. No murmur, rub or gallop is appreciated. Respiratory: Lungs are clear to auscultation, respirations are non-labored, breath sounds are equal. Gastrointestinal: Soft, non-distended, non-tender abdomen . Back: There is tenderness to palpation in the paralumbar and right buttock region. There is no obvious deformity . Musculoskeletal: ROM limited secondary to pain and stiffness from surgical procedure. Shoulder abduction 5/5, elbow flexors 5/5, wrist dorsiflexors 5/5. finger abductor 5/5, general operator 5/5, hip flexor 4/5, knee flexor 4/5, ankle dorsiflexor 4/5, ankle plantarflexion 4/5 and extensor hallucis 4/5. Neurological: CN 2-12 intact. There are no obvious motor or sensory deficits. Movement and coordination equal and intact. Sensory exam to light touch intact C5-T1 and intact from L2-S1. Reflexes 2/4 in bilateral upper and lower extremities. Negative Hoffmans, babinski, and clonus signs. Psychiatric: Cooperative, appropriate mood & affect, normal judgment. - Labs CBC & Chem 7: 03/01/22 04:29 02/28/22 12:47 Labs: Abnormal Lab Results - Last 24 Hours (Table) 02/28/22 02/28/22 03/01/22 Range/Units 12:47 12:47 04:29 WBC 15.1 H 12.31 H (3.8-10.6) k/uL Glucose 157 H (74-99) mg/dL Assessment and Plan Assessment: Post-Op Day 3: revision laminectomy decompression and discectomy L4-L5, L3-L4 laminectomy and decompression evacuation of hematoma 1. Massive L4-5 HNP with severe LBP and radiculopathy 2. LE weakness 3. Debility secondary to #1 Plan: Plan: -Appreciate workers compensation consultant and team management. -Activity: Ambulate QID, OOB all meals, up and about, limit lifting bending twisting to less than 5 lbs. Use walker or cane if needed for stability. -Daily PT/OT, increase ambulation strength and balance. -Pain control: Adequate at this time -Meds: reviewed -GI ppx: senna, Miralax -DVT PPX: Heparin -Hygiene: Shower today. Maintain dressing clean and dry. Meticulous cleaning after BMs away from the incision site -Encourage IS 10x/hr -Dispo: Anticipate discharge home this afternoon *I reviewed and discussed this case with my attending Dr. Sauer, whom has reviewed this chart and films and is in agreement with assessment and plan of care as outlined above. I have personally seen and examined the patient, performed the documentation and the assessment and plan as written. Number of minutes spent on the visit: 20m.
[2022-03-01 09:18] LABS: African American GFR (CKD) 133.3 (60.0-200.0); Albumin 3.9 g/dL (3.8-4.9); Albumin/Globulin Ratio 1.7 (1.60-3.17); Anion Gap 9.5 mmol/L (10.00-18.00); BUN/Creat Ratio 16.78 Ratio (12.00-20.00); Blood Urea Nitrogen 15.1 mg/dL (9.0-27.0); Carbon Dioxide 28.5 mmol/L (20.0-27.5); Globulin 2.3 g/dL (1.6-3.3); Potassium 4.1 mmol/L (3.5-5.5); Total Bilirubin 0.4 mg/dL (0.30-1.20); Total Protein 6.2 g/dL (6.2-8.2)
[2022-03-01 09:37] VITALS: BP 155/91; PULSE 71
--- NOTE | 2022-03-01 11:47 | P.DS ---
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 They underwent appropriate preoperative care and were willing to undergo the intended procedure. They underwent a successful revision laminectomy decompression and discectomy L4-L5, L3-L4 laminectomy and decompression evacuation of hematoma, were recovered appropriately and sent to the floor. While on the floor they worked with physical therapy, occupational therapy and nursing to enhance their recovery experience. Their pain was well controlled through their stay and they were started on appropriate medications, DVT ppx modalities, activity and dietary needs. Daily labs were monitored closely, and transfusions were only used when necessary. Medicine as well as other consulting services have made their input and have helped with our team approach and multidisciplinary care. PT milestones have been met and passed and they have made the recommendation of home for this patient and treating providers agree with this care path. The patient will be discharged home with appropriate medications, instructions and follow-up information and in stable condition. Patient Condition at Discharge: Good Plan - Discharge Summary New Discharge Prescriptions: New cefaDROXiL [Duricef] 500 mg PO Q12HR 5 Days #10 cap Gabapentin 300 mg PO TID #90 cap HYDROcodone/APAP 10-325MG [Harvey 10-325] 1 tab PO Q4-6H PRN #56 tab PRN Reason: Pain Sennosides/Docusate Sodium [Senna Plus 8.6-50 mg Tablet] 1 each PO DAILY PRN #20 tablet PRN Reason: Constipation Continue Cyclobenzaprine [Flexeril] 10 mg PO BID #40 tab No Action HYDROcodone/APAP 10-325MG [Harvey 10-325] 1 tab PO Q4HR PRN PRN Reason: Pain Gabapentin [Neurontin] 300 mg PO TID Ibuprofen [Motrin] 800 mg PO Q6H PRN PRN Reason: Pain Discharge Medication List Gabapentin [Neurontin] 300 mg PO TID 02/24/22 [History] HYDROcodone/APAP 10-325MG [Harvey 10-325] 1 tab PO Q4HR PRN 02/24/22 [History] Ibuprofen [Motrin] 800 mg PO Q6H PRN 02/24/22 [History] Cyclobenzaprine [Flexeril] 10 mg PO BID #40 tab 03/01/22 [Rx] Gabapentin 300 mg PO TID #90 cap 03/01/22 [Rx] HYDROcodone/APAP 10-325MG [Harvey 10-325] 1 tab PO Q4-6H PRN #56 tab 03/01/22 [Rx] Sennosides/Docusate Sodium [Senna Plus 8.6-50 mg Tablet] 1 each PO DAILY PRN #20 tablet 03/01/22 [Rx] cefaDROXiL [Duricef] 500 mg PO Q12HR 5 Days #10 cap 03/01/22 [Rx] Follow up Appointment(s)/Referral(s): None,Stated [REFERRING] - 1-2 days Hima Sauer DO [Doctor of Osteopathic Medicine] - 2 Weeks Patient Instructions/Handouts: Acute Low Back Pain (ED) Activity/Diet/Wound Care/Special Instructions: Spine Discharge and Recovery Instructions Date of Surgery: 02/25/2022 Diagnosis: L4-L5 Disc Herniation with myelopathy Procedure: L4 to L5 micro-discectomy Medications: See medication list All medication refills should be obtained through your primary care doctor or your clinic spine surgeon. Please discuss prescription refills at your follow up appointment. Do not call the hospital for medication refills. Dressing: Leave your dressing in place for a total of 5 days post operatively. Then you may remove your dressing and leave open to air. Keep the area clean and if not able to keep area clean, then cover with sterile gauze and tape. Showering: You may shower 3 days after your procedure allowing soap and water to run over incision. Do not scrub. Do not soak. Blot dry. Follow up: Please confirm a follow up appointment with your surgeon 3 weeks post operatively. Please make an appointment to follow up with your PCP in 1-2 weeks after surgery for evaluation 3 phase, 3-week plan POST OP WEEKS 1-3 1. Lifting/carrying/pushing/pulling limited to less than 5 pounds. 2. Do not sit for longer than 15 minutes at one time. Get up and walk itz und. Prolonged sitting is NOT advised. If you lay down, see if you can tolerate laying down on you front (belly side) 3. Walk for periods of 15 minutes = 1 mile but no longer; do it multiple times times each day. 4. Ice your low back after activity. POST OP WEEKS 3-6 1. Lifting limited to less than 20 pounds. 2. Do not sit for longer than 30 minutes at a time. Frequently change positions. Use a sit-to stand workstation or take frequent breaks from sitting if you have returned to work. 3. Walk for 30 minutes each day. If possible, do these three or more times a day POST OP WEEKS 6+ At your 6-week appointment we will give you a physical therapy referral to focus on a core stabilization and strengthening program. You should also work on leg & buttock strengthening, hamstring & quadriceps stretching, and continue a low impact aerobic activity program such as swimming, walking, or riding a stationary bicycle. During the initial 6 weeks after your surgery, you are at the highest risk of re-injuring your spine. You should generally avoid BLTs (bending, lifting and twisting combination motions) and follow the above guidelines to reduce the chance of reinjury. You can anticipate post op appointments in our office at approximately 3 weeks and 6 weeks after your surgery. INCISION CARE: If your incision is not draining you do NOT need to cover it with a dressing. Keep your incision clean, dry and intact. In most cases, we apply skin glue, gino or sutures to the incision at the time of surgery. This will be like a crust or have the appearance of a scab and will fall off in time on its own. The stitches or gino need to be removed at 3 weeks post op appointment. You may begin to shower 3 days after surgery (this allows the glue to montilla well). However, please avoid scrubbing the incision site or peeling off any of the skin glue. This will ensure optimal healing of your incision. Also, during this time avoid soaking the incision area in water - this includes swimming pools, hot tubs or baths. No ointments, lotions or oils on the incision until your surgeon allows. Leave gino, sutures or glue in place. Neurological dysfunction that comes on suddenly can also be a sign of a stroke. Below some common symptoms of a stroke are listed: B - balance difficulty such as sudden onset walking or leaning to one side - NEW E - eye problem such as sudden double vision or trouble seeing on one side - NEW F - Facial weakness or numbness on one side - NEW A - Arm or leg weakness or numbness on one side - NEW S - Slurred speech or difficulty with word finding - NEW T - Time is BRAIN! Call 911 as soon as you recognize these symptoms Diet: Consume a regular diet rich in vegetables and lean protein such as chicken or fish. You should consume in a ratio of approximately 20% fats|40% carbohydrates|40%protein. Vegetables, sweet potatoes, brown rice or quinoa are examples of good carbohydrates. Chips, white bread, cookies and sweets/sugar are examples of bad carbohydrates. Limit your bad carbs, go wild with good carbs. "Life's Simple 7" Guidelines as per [place] [employer] These will help you reclaim your life after surgery and wash helper in your recovery, keeping in mind your restrictions. (1) Get Active. Physical activity can help people lose weight, control high blood pressure and cholesterol, feel emotionally better, and sleep better. (2) Control Cholesterol. Avoid a diet high in saturated fat, trans fat, & cholesterol. Limit whole milk & cream, ice cream, butter, egg yolks, processed meats (like sausage and hot dogs), and fatty meats. Choose healthy foods that are low in saturated fat, trans fat and cholesterol which include: Fruits and vegetables, fiber rich grain products (like whole grain pasta and brown rice), lean meat such as chicken, fish, nuts, seeds, and legumes. (3) Eat Better. Eat small portions. Shop at the grocery with a list and do not stray from it. Tips for a healthy diet include: Limit sodium intake to less than 1500mg daily, avoid prepackaged, processed, and fast foods, choose a diet rich in fruits, vegetables, and whole grain, high fiber foods, and limit saturated & cholesterol in your diet. (4) Manage Blood Pressure. If you have high blood pressure, you should have a cuff at home so that you can check your blood pressure regularly. Be sure you have a good cuff. An arm one is generally better than a wrist one. Bring the cuff to a doctor's appointment to validate that the measurements that your cuff are taking are accurate. Take your blood pressure twice daily when you are sitting down and relaxing. Record the numbers in a log and bring this log with you to your doctors' appointments. (5) Lose Weight if your BMI is above 25. A healthy BMI is between 19-25. To calculate Your BMI, you may use a Standard BMI Calculator on the NIH BMI website: <www.nhlbi.nih.gov/guidelines/obesity/BMI/bmicalc.htm>. Weigh oneself daily. If you are overweight, set a goal to lose weight. A pound a week loss if needed is a good target. (6) Reduce Blood Sugar. Limit foods and liquids with "added sugars." (Added sugars include sucrose, fructose, glucose, maltose, dextrose, high fructose corn syrup, corn syrup, concentrated fruit juice and honey). (7) Stop Smoking. If you smoke, quitting smoking is one of the best things that you can do for your health. Smoking increases your risk of heart attack, stroke, and peripheral vascular disease, which is a build-up of plaque in your arteries. Please discard all the cigarettes and lighters in your house. Have a plan for what you will do when you have the urge to smoke. Direct and second- hand smoke shortens your life as well as the lives of your family, friends and others around you. For your health and the health of those around you, please consider quitting! Proper Bending Body Mechanics: Maintain a wide stance with one foot slightly in front of the other. Keep your back straight. Bend utilizing the strength in your hips and knees. Do not bend at the waist. Maintain the lifted object at your waist-level close to your body. Avoid lifting weight that causes immediately pain or pain anywhere in the body afterwards. Smoking/Nicotine If there was ever one thing that you could do to increase your overall health, decrease your risk of cardiovascular problems by about 39% the second you make the choice, it is to STOP SMOKING. Your body's most instant gratification is the second you stop smoking. We have all heard the studies, read the articles but it is true, smoking is extremely bad for your overall health, and moreover it is detrimental to your bone health. Nicotine, IN ANY FORM, kills bone cells, prevents your body from healing fractures, and significantly prolongs healing after surgery. In spine surgery specifically, it increases your risk of not healing your bones to create a fusion and increases your risk of having a revision surgery due to this up to 60%. I know it is hard. I know it feels impossible. But there are ways. Take control of your life. We are here to help you through it. And when you are ready, ask us and we can direct you to help if you desire. Use the START Plan to Quit Smoking (please visit the [employer]org website listed below for more information): S = Set a quit date. Choose a date within the next 2 weeks, so you have enough time to prepare without losing your motivation to quit. If you mainly smoke at work, quit on the weekend, so you have a few days to adjust to the change. T = Tell family, friends, and co-workers that you plan to quit. Let your friends and family in on your plan to quit smoking and tell them you need their support and encouragement to stop. Look for a quit steffi who wants to stop smoking as well. You can help each other get through the rough times. A = Anticipate and plan for the challenges you'll face while quitting. Most people who begin smoking again do so within the first 3 months. You can help yourself make it through by preparing ahead for common challenges, such as nicotine withdrawal and cigarette cravings. R = Remove cigarettes and other tobacco products from your home, car, and work. Throw away all your cigarettes (no emergency pack!), lighters, ashtrays, and matches. Wash your clothes and freshen up anything that smells like smoke. Shampoo your car, clean your drapes and carpet, and steam your furniture. T = Talk to your doctor about getting help to quit. Your doctor can prescribe medication to help with withdrawal and suggest other alternatives. If you can't see a doctor, you can get many products over the counter at your local pharmacy or grocery store, including the nicotine patch, nicotine lozenges, and nicotine gum. Resources for Quitting Smoking: <https://www.[place].gov/documents/[facility]/Quit_Tobacco_Resources_for_patients_313 480_7.pdf> Supplementation: Take recommended dosages of Vitamin D and Calcium to help fortify your bones and help them to heal. See your health maintenance packet for dosages and recommended levels. DVT/VTE prophylaxis: You will be given compression stockings from the hospital. Wear these daily for the first two weeks after surgery. You may take them off at night. You may be prescribed a medication to help thin your blood. Take this as directed. If you are not prescribed this medication, early and frequent ambulation has been shown to be the best prophylaxis to deep vein thrombosis and sequelae related to this event. Discharge Disposition: HOME SELF-CARE
--- NOTE | 2022-03-01 14:58 | P.PN ---
Subjective Progress Note Date: 03/01/22 Hospital course: Patient is a very pleasant 31-year-old male with history of chronic back pain, THC use, and recent tobacco use. Pt presented to the ER on 02/24/22 at the direction of Dr. Sauer for numbness and tingling with worsening back pain. In the ER pt underwent an extensive evaluation. He was found to be tachycardic with heart rate 103 and hypertensive with blood pressure 159/119. Laboratory analysis was unremarkable. Patient was admitted under orthospine surgery team and we were consulted for continued medical management throughout his hospit alization. On 02/25/22 patient underwent bilateral laminectomy with partial medial facetectomy and foraminotomy with microdiscectomy of L4 and L5. On 02/26/22 patient reportedly went from doing very well and ambulating in room to suddenly experiencing increased pain to lumbar spine slightly below the surgical incision site, difficulties with urination and new onset inability to bear weight on right lower extremity. Orthospine surgeon was notified immediately and stat MRI was completed revealing large hypointense collection in the right paracentral region at L4 through L5 level with significant mass effect and spinal canal stenosis. Patient was taken back in to surgery urgently by Dr. Sauer and underwent emergent irrigation and debridement with evacuation of hematoma of lumbar spine with revision of bilateral laminectomy, partial medial facetectomy and foraminotomy L3 through 5 with revision discectomy L4 through L5. Physical examination: Patient seen and fully evaluated at bedside this morning. He continues to have episodes of hypertension, however it is unclear whether or not this is associated with pain. It was again discussed with patient regarding importance of monitoring blood pressure at home especially when he is in a pain-free state to determine whether or not he is truly experiencing hypertension or if this is correlated to current situation. Patient instructed that if he continues to have episodes of hypertension in which blood pressure is 140 systolic or greater he will need to follow up with his PCP as he will likely need to be placed on antihypertensive medications. Patient verbalized understanding and reports that his mother is an RN and was very reassuring that he will monitor closely upon discharge. Upon assessment drain remains in place to lower back. Patient awaiting to be evaluated by orthospine specialist, likely to be removed later today. Patient reports back pain much improved since arrival to facility, he states that obviously hurts more with movement but much much better. Patient continues to deny having any numbness/tingling/weakness in his extremities and continues to urinate without any difficulties. Leukocytosis continues to improve. Morning labs otherwise unremarkable. General: non toxic, no distress, appears at stated age Derm: warm, dry. VILLA brace in place. Drain remains in place. Head: atraumatic, normocephalic, symmetric Eyes: EOMI, no lid lag, anicteric sclera Mouth: no lip lesion, mucus membranes moist Cardiovascular: S1S2 reg, no murmur, positive posterior tibial pulse bilateral, Lungs: CTA bilateral, no rhonchi, no rales , no accessory muscle use Abdominal: soft, nontender to palpation, no guarding, no appreciable organomegaly Ext: no gross muscle atrophy, no edema, no contractures Neuro: CN II-XI grossly intact, no focal neuro deficits Psych: Alert, oriented, appropriate affect Assessment and plan of care: Intractable back pain that failed outpatient treatment with pain management, PT, and steroids L4/5 lumbar disc herniation with radiculopathy Status post bilateral laminectomy with partial medial facetectomy and foraminotomy with microdiscectomy of L4 and L5 on 02/25/22 Status post emergent irrigation and debridement with evacuation of hematoma of lumbar spine with revision of bilateral laminectomy, partial medial facetectomy and foraminotomy L3 through 5 with revision discectomy L4 through L5. -Admitted under orthospine surgery team -Management per primary admitting orthopedic surgery team including DVT prophylaxis, postop dressing changes, drain care, pain management, weightbearing, and PT/OT. -DVT prophylaxis currently with SCDs -We will continue to monitor patient and provide symptomatic care and pain management -Continue decadron 4 mg IVP every 6 hours Leukocytosis , improving -Likely reactive secondary to recent procedures as well as steroid administration. We will continue to monitor. Chronic: THC use, Recent tobacco dependency (quit recently) Thank you for allowing us to participate in the care of this pleasant patient. Do not hesitate to contact us with questions. Someone can be reached from the [facility] hospitalist group all hours of the day at [phone] or via [employer]. I reviewed the documentation as provided by the NAKUL above, who is the original author of this note. I agree with the documented assessment and plan, with the following changes: none Objective - Vital Signs Vital signs: Vital Signs Temp 97.8 F 03/01/22 02:00 Pulse 62 03/01/22 02:00 Resp 16 03/01/22 02:00 BP 149/74 03/01/22 02:00 Pulse Ox 95 03/01/22 02:00 FiO2 Intake & Output 02/28/22 03/01/22 03/01/22 18:59 06:59 18:59 Output Total 20 Balance -20 Output: Drainage 20 Medial Back 20 Other: Voiding Method Toilet Urinal - Labs CBC & Chem 7: 03/01/22 04:29 03/01/22 04:29 Labs: Abnormal Lab Results - Last 24 Hours (Table) 02/28/22 02/28/22 Range/Units 12:47 12:47 WBC 15.1 H (3.8-10.6) k/uL Glucose 157 H (74-99) mg/dL
== END 2022-03-01 13:57 | disposition home or self-care (01) | DRG 519 ==
LOC: EC 11:03 → 4SSUR 11:31 → OBSVTOIN 02-26 18:10
PROVIDERS: ADMIT Orthopaedic Surgery; ATTEND Orthopaedic Surgery
PROC: 00NY0ZZ Release Lumbar Spinal Cord, Open Approach (ICD-10-PCS; 2022-02-25)
PROC: 01NB0ZZ Release Lumbar Nerve, Open Approach (ICD-10-PCS; 2022-02-25)
PROC: 0SB20ZZ Excision of Lumbar Vertebral Disc, Open Approach (ICD-10-PCS; principal; 2022-02-25 13:00)
PROC: 00CY0ZZ Extirpation of Matter from Lumbar Spinal Cord, Open Approach (ICD-10-PCS; 2022-02-26)
PROC: 0SB20ZZ Excision of Lumbar Vertebral Disc, Open Approach (ICD-10-PCS; 2022-02-26)
PROC: 0QB00ZZ Excision of Lumbar Vertebra, Open Approach (ICD-10-PCS; 2022-02-26)
DX: M51.06 Intervertebral disc disorders with myelopathy, lumbar region (principal); M96.840 Postprocedural hematoma of a musculoskeletal structure following a musculoskeletal system procedure; D72.829 Elevated white blood cell count, unspecified; Z28.310 Unvaccinated for COVID-19; M48.061 Spinal stenosis, lumbar region without neurogenic claudication; M51.16 Intervertebral disc disorders with radiculopathy, lumbar region; T38.0X5A Adverse effect of glucocorticoids and synthetic analogues, initial encounter; G47.00 Insomnia, unspecified; K59.00 Constipation, unspecified; F17.291 Nicotine dependence, other tobacco product, in remission; Z71.6 Tobacco abuse counseling; Z79.899 Other long term (current) drug therapy; Z87.81 Personal history of (healed) traumatic fracture; Z98.890 Other specified postprocedural states; Y83.8 Other surgical procedures as the cause of abnormal reaction of the patient, or of later complication, without mention of misadventure at the time of the procedure; Y92.234 Operating room of hospital as the place of occurrence of the external cause
CPT/HCPCS: 36415; 72100; 72158; 80048; 80053; 85025; 85027; 85610; 85730; 88305; 93005; 96372; 96374; 96376; 99285

== ENCOUNTER → 2023-03-04 | Outpatient (CLI) | payer OTHER ==
--- NOTE | 2023-03-04 17:45 | MR ---
EXAMINATION TYPE: MR brain wo/w con DATE OF EXAM: 03/04/2023 3:09 PM CLINICAL INDICATION:Male, 32 years old with history of R51.9; Severe headaches for years COMPARISON: None TECHNIQUE: Multi planar, multi sequence imaging was performed through the brain including: T1, T2, In version recovery, susceptibility weighted imaging and gradient echo imaging and Diffusion weighted im aging. The patient was then given intravenous contrast and multi planar, T1 fat-saturation images wer e obtained. IV Contrast: 11 cc Gadavist FINDINGS: Many cisterna magna noted. The valle-white junctions, ventricular system, basal cisterns appear unrema rkable. Diffusion-weighted imaging shows no evidence of restricted diffusion to suggest acute/subacut e infarct. Intracranial arterial flow voids are maintained. Midline structures show no abnormality. T he susceptibility weighted images do not reveal any evidence for micro-hemorrhage. After administrati on of gadolinium, no abnormal enhancement is seen. The bone marrow signal is within normal limits. Paranasal sinuses and mastoid air cells: Mild scattered paranasal sinus disease. Visualized orbits: Orbital contents are intact. IMPRESSION: No evidence of intracranial mass, acute/subacute infarct, or abnormal enhancement.
== END | disposition home or self-care (01) ==
LOC: RADMRIMAIN 14:08
PROVIDERS: ATTEND Family Medicine
DX: R51.9 Headache, unspecified (principal)
CPT/HCPCS: 70553; A9585